=== PATIENT | female | born 1955 | race Caucasian/White ===

== ENCOUNTER 2018-04-10 08:14 | Outpatient (CLI) | payer MEDICAID, SELFPAY ==
--- NOTE | 2018-04-10 10:02 | MERGE_ITS ---
*[facility]* *[facility]* [address] [place] [address] Date of study: 04/10/2018 Transthoracic Echocardiography M-mode, complete 2D, complete spectral Doppler, and color Doppler *STUDY CONCLUSIONS* Summary: 1. Left ventricle: The cavity size was normal. Wall thickness was normal. Systolic function was normal. The estimated ejection fraction was 55-60%. Wall motion was normal; there were no regional wall motion abnormalities. Findings consistent with diastolic dysfunction. Doppler parameters are consistent with high ventricular filling pressure. 2. Aortic valve: Trileaflet; moderately calcified leaflets. There was mild stenosis. There was mild to moderate regurgitation. Peak velocity (S): 2.2m/sec. Valve area (VTI): 1.5cm^2. 3. Mitral valve: There was mild regurgitation. 4. Right ventricle: The cavity size was normal. Wall thickness was normal. Systolic function was normal. 5. Tricuspid valve: There was mild-moderate regurgitation. *PATIENT PRESENTATION* Height: 160cm ((63in) ) S/D Pressure: 123 / 88 Weight: 65.8kg ((144.7lb) ) BSA: 1.72m^2 Test start time: 10:10 AM. Test stop time: 11:10 AM. ORDERING Lili Wang REFERRING Lili Wang PERFORMING Unknown PERFORMING [facility] AIRPORT OPERATIONS MANAGER RT Julieta (R)(ALBA), ANDERSON *PROCEDURE DATA* Procedure information: The patient was identified by two identifiers. This study was interpreted by [facility]. Pertinent images and digital data are archived for permanent storage and are available for subsequent review. Study status: Routine. Transthoracic echocardiography. M-mode, complete 2D, complete spectral Doppler, and color Doppler. A Transthoracic Echocardiogram was performed. Scanning was performed from the parasternal, apical, subcostal, and suprasternal notch acoustic windows. Images were obtained using an [id number] cardiac ultrasound machine. Image quality was adequate. Study completion: The patient tolerated the procedure well. There were no complications. History: PMH: Systolic heart murmur. Hx rheumatoid arthritis. *CARDIAC ANATOMY* Left ventricle: The cavity size was normal. Wall thickness was normal. Systolic function was normal. The estimated ejection fraction was 55-60%. Wall motion was normal; there were no regional wall motion abnormalities. Findings consistent with diastolic dysfunction. Doppler parameters are consistent with high ventricular filling pressure. Aortic valve: Trileaflet; moderately calcified leaflets. Valve mobility was restricted. Doppler: There was mild stenosis. There was mild to moderate regurgitation. VTI ratio of LVOT to aortic valve: 0.49. Valve area (VTI): 1.5cm^2. Indexed valve area (VTI): 0.9cm^2/m^2. Peak velocity ratio of LVOT to aortic valve: 0.49. Valve area (Vmax): 1.5cm^2. Indexed valve area (Vmax): 0.9cm^2/m^2. Mean velocity ratio of LVOT to aortic valve: 0.5. Valve area (Vmean): 1.5cm^2. Indexed valve area (Vmean): 0.9cm^2/m^2. Mean gradient (S): 11.1mm Hg. Peak gradient (S): 19.9mm Hg. Aorta: Aortic root: The aortic root was normal in size. Ascending aorta: The ascending aorta was normal in size. Mitral valve: Structurally normal valve. Mobility was not restricted. Doppler: Transvalvular velocity was within the normal range. There was no evidence for stenosis. There was mild regurgitation. Valve area by pressure half-time: 3.9cm^2. Indexed valve area by pressure half-time: 2.3cm^2/m^2. Peak gradient (D): 3mm Hg. Left atrium: The atrium was normal in size. Right ventricle: The cavity size was normal. Wall thickness was normal. Systolic function was normal. Pulmonic valve: Structurally normal valve. Doppler: Transvalvular velocity was within the normal range. There was no evidence for stenosis. There was trivial regurgitation. Peak gradient (S): 2.9mm Hg. Tricuspid valve: Structurally normal valve. Doppler: Transvalvular velocity was within the normal range. There was no evidence for stenosis. There was mild-moderate regurgitation. Pulmonary artery: Pulmonary systolic pressure was within the normal range, in the range of 30mm Hg to 35mm Hg. Right atrium: The atrium was normal in size. Pericardium: There was no pericardial effusion. Systemic veins: Inferior vena cava: Well visualized. The vessel was patent and normal in size. The respirophasic diameter changes were in the normal range (greater than or equal to 50%). Baseline ECG: Normal sinus rhythm. Measurements Left ventricle Value Reference LV ID, ED, PLAX 4.5 cm 3.5 - 6.0 LV ID, ES, PLAX 3.3 cm 2.1 - 4.0 LV PW thickness, ED, PLAX 1.1 cm LV end-diastolic volume, 1-p A2C 64 ml LV ejection fraction, 1-p A2C 50 % LV end-diastolic volume, 1-p A4C 92 ml LV ejection fraction, 1-p A4C 61 % LV e', lateral 0.052 m/sec LV E/e', lateral 17 LV e', medial 0.055 m/sec LV E/e', medial 16 LV e', average 0.054 m/sec LV E/e', average 16 Ventricular septum Value Reference IVS thickness, ED, PLAX 1.0 cm LVOT Value Reference LVOT ID, A-P 2.0 cm LVOT area 3.1 cm^2 LVOT peak velocity, S 1.09 m/sec LVOT mean velocity, S 0.8 m/sec LVOT VTI, S 23.1 cm LVOT peak gradient, S 4.7 mm Hg LVOT mean gradient, S 2.8 mm Hg Stroke volume (SV), LVOT DP 71 ml Stroke index (SV/bsa), LVOT DP 41 ml/m^2 Aortic valve Value Reference Aortic valve peak velocity, S 2.2 m/sec Aortic valve mean velocity, S 1.59 m/sec Aortic valve VTI, S 47.0 cm Aortic mean gradient, S 11.1 mm Hg Aortic peak gradient, S 19.9 mm Hg VTI ratio, LVOT/AV 0.49 Aortic valve area, VTI 1.5 cm^2 Velocity ratio, peak, LVOT/AV 0.49 Aortic valve area, peak velocity 1.5 cm^2 Velocity ratio, mean, LVOT/AV 0.5 Aortic valve area, mean velocity 1.5 cm^2 Aortic valve area/bsa, mean velocity 0.9 cm^2/m^2 Aortic regurg deceleration 341 cm/s^2 Aortic regurg pressure half-time 333 ms Aorta Value Reference Aortic root ID, ED 3.2 cm Ascending aorta ID, A-P, S 3.4 cm Left atrium Value Reference LA ID, A-P, ES 2.4 cm LA ID/bsa, A-P 1.4 cm/m^2 <=2.2 LA area, ES, A4C 16.1 cm^2 8.8 - 23.4 LA area, ES, A2C 17 cm^2 LA volume/bsa, ES, 1-p A4C 26 ml/m^2 LA volume, ES, 2-p 43 ml LA volume/bsa, ES, 2-p 25 ml/m^2 LA/aortic root ratio 0.75 Mitral valve Value Reference Mitral E-wave peak velocity 0.86 m/sec Mitral A-wave peak velocity 1.01 m/sec Mitral deceleration time 194 ms 150 - 230 Mitral pressure half-time 56 ms Mitral peak gradient, D 3 mm Hg Mitral E/A ratio, peak 0.85 Mitral valve area, PHT, DP 3.9 cm^2 Tricuspid valve Value Reference Tricuspid regurg peak velocity 2.5 m/sec Tricuspid peak RV-RA gradient 25.9 mm Hg Right atrium Value Reference RA area, ES, A4C 16.5 cm^2 8.3 - 19.5 Pulmonic valve Value Reference Pulmonic peak gradient, S 2.9 mm Hg Legend: (L) and (H) bryce values outside specified reference range. I have personally reviewed the images and have reviewed and edited the reported findings. Electronically signed by Gal Miller 04/10/2018 12:36
== END 2018-04-10 08:34 ==
PROVIDERS: PCP Family Medicine; Visit Provider Family Medicine
DX: R01.1 Cardiac murmur, unspecified (principal); I50.30 Unspecified diastolic (congestive) heart failure; I35.1 Nonrheumatic aortic (valve) insufficiency; I34.0 Nonrheumatic mitral (valve) insufficiency; I36.1 Nonrheumatic tricuspid (valve) insufficiency
CPT/HCPCS: 93306

== ENCOUNTER 2018-05-11 13:39 | Outpatient (REF) | payer MEDICAID, SELFPAY ==
[2018-05-11 22:32] LABS: TSH (W/Ref FT4) 0.61 uIU/mL (0.358-3.74)
== END 2018-05-11 13:59 ==
LOC: NCHCN 13:39
PROVIDERS: PCP Family Medicine; Visit Provider Specialist/Technologist Athletic Trainer
DX: E03.9 Hypothyroidism, unspecified (principal)
CPT/HCPCS: 84443

== ENCOUNTER 2018-06-03 20:17 | Outpatient (REF) | payer MEDICAID, SELFPAY ==
[2018-06-03 21:01] LABS: HCT 46.1 % (36.0-46.0); HGB 15.8 g/dL (12.0-15.5); Mean Corp. HGB Concentration 34.3 g/dL (32.0-36.0); Mean Corpuscular Hemoglobin 32.2 pg (27.0-33.0); Mean Corpuscular Volume 93.9 fL (80-95); Mean Platelet Volume 11.6 fL (8.0-11.0); Platelet Count 271 x1000/uL (130-400); RBC 4.91 m/cumm (4.00-5.20); RBC Distribution Width 12.6 % (11.7-14.6)
[2018-06-03 21:04] LABS: ALT 69 U/L (12-78); AST 30 U/L (15-37); Albumin 4.3 g/dL (3.4-5.0); Alkaline Phosphatase 115 U/L (46-116); BUN 18 mg/dL (7-18); Bilirubin, Total 0.3 mg/dL (0.2-1.0); CREATININE 0.76 mg/dL (0.55-1.02); Calcium 9.9 mg/dL (8.5-10.1); Chloride 102 mmol/L (98-107); Glucose 105 mg/dL (70-100); Lipase 191 U/L (73-393); Potassium 3.7 mmol/L (3.5-5.1); Sodium 142 mmol/L (136-145)
== END 2018-06-03 20:37 ==
LOC: NCHCN 20:17
PROVIDERS: PCP Family Medicine; Visit Provider Specialist/Technologist Athletic Trainer
DX: R19.7 Diarrhea, unspecified (principal)
CPT/HCPCS: 80053; 83690; 85027

== ENCOUNTER 2018-06-04 10:11 | Outpatient (REF) | payer MEDICAID, SELFPAY ==
[2018-06-05 11:19] LABS: Campylobacter PCR SEE COMMENTS; Salmonella PCR SEE COMMENTS; Shiga Toxin PCR SEE COMMENTS; Shigella/Enteroinvasive Ecoli SEE COMMENTS
[2018-06-09 14:40] LABS: Helicobacter pylori Ag, Feces Negative (NEGAT)
== END 2018-06-04 10:31 ==
LOC: NCHCN 10:11
PROVIDERS: PCP Family Medicine; Visit Provider Specialist/Technologist Athletic Trainer
DX: R19.7 Diarrhea, unspecified (principal)
CPT/HCPCS: 87329; 87338; 87505; 83630; 87324

== ENCOUNTER 2018-06-15 10:34 | Outpatient (CLI) | payer MEDICAID, SELFPAY | END 2018-06-15 10:54 | PROVIDERS: PCP Family Medicine; Visit Provider Internal Medicine Interventional Cardiology | DX: I35.0 Nonrheumatic aortic (valve) stenosis (principal); I10 Essential (primary) hypertension | CPT/HCPCS: 93005; 93010 ==

== ENCOUNTER 2018-09-14 11:01 | Outpatient (CLI) | payer MEDICARE, BC, MEDICAID, SELFPAY | END 2018-09-14 11:21 | PROVIDERS: PCP Family Medicine; Visit Provider Internal Medicine Interventional Cardiology | DX: I35.0 Nonrheumatic aortic (valve) stenosis (principal); I10 Essential (primary) hypertension; M06.9 Rheumatoid arthritis, unspecified | CPT/HCPCS: 99214; 93005; 93010 ==

== ENCOUNTER 2019-05-07 01:38 | Outpatient (CLI) | payer MEDICARE, BC, SELFPAY ==
--- NOTE | 2019-05-07 13:53 | DI.US_ITS ---
APPROVED REPORT EXAM: Comprehensive 2D, Doppler, and color-flow Echocardiogram Patient Location: Out-Patient Physical Science Technician: Allison Rob [facility] ([place]) Indications: aortic stenosis i35.0 Conclusion Left Ventricle : The left ventricle is normal size. There is normal left ventricular wall thickness. Diastolic function is indeterminate. There is abnormal relaxation of the left ventricule. The left v entricular systolic function is normal. There is normal LV segmental wall motion. LVEF is estimated to be 60-65%. Right Ventricle : The right ventricle is normal size. The right ventricular systolic function appears normal. Atria : The left atrium size is normal. The right atrium size is normal. Aortic Valve : Aortic valve is probably trileaflet. Aortic valve leaflets are sclerotic Mild to moder ate aortic regurgitation directed eccentrically posterior. Mild aortic stenosis (mean gradient 13mmHg ). Mitral Valve : Mitral valve leaflets are mildly thickened. Mild mitral regurgitation. No evidence of mitral valve stenosis. Tricuspid Valve : The tricuspid valve is normal in structure. Mild tricuspid regurgitation. Great Vessels : IVC appears normal in size and collapses >50% with inspiration. Estimated RVSP is 29 -32 mmHg. Compared to echocardiogram dated 04/10/2018, there is no significant change. Wall motion Left Ventricle The left ventricle is normal size. The left ventricular systolic function is normal. There is normal left ventricular wall thickness. There is normal LV segmental wall motion. Diastolic function is inde terminate. There is abnormal relaxation of the left ventricule. LVEF is estimated to be 60-65%. Right Ventricle The right ventricle is normal size. The right ventricular systolic function appears normal. Atria The left atrium size is normal. The right atrium size is normal. Aortic Valve Aortic valve is probably trileaflet. Aortic valve leaflets are sclerotic Mild aortic stenosis (mean g radient 13mmHg). Mild to moderate aortic regurgitation directed eccentrically posterior. Mitral Valve Mitral valve leaflets are mildly thickened. No evidence of mitral valve stenosis. Mild mitral regurgi tation. Tricuspid Valve The tricuspid valve is normal in structure. Mild tricuspid regurgitation. Pulmonic Valve Pulmonic valve is not well visualized. Mild pulmonic regurgitation. Great Vessels The aortic root is normal in size. The ascending aorta is mildly dilated at 3.7 to 3.8 cm. IVC appear s normal in size and collapses >50% with inspiration. Estimated RVSP is 29-32 mmHg. Pericardium There is no pericardial effusion. 2D Dimensions IVSd 0.70 cm F: 0.6-1.0 LV EDV A2C 84.20 mL PWd 0.70 cm F: 0.6 - 1.0 LV EDV A4C 85.70 mL LVDd 5.25 cm F: 3.8 - 5.2 LA Volume Index A2C 15.97 mL/m2 Aortic Root 3.30 cm F: 2.7 - 3.3 LA Volume Index A4C 16.25 mL/m2 RA Area A4C 15.00 cm2 LA Volume Index Biplane 17.17 mL/m2 LVOT 1.95 cm (M/F) 1.5-2.5 LA Area A4C 11.97 cm2 Ascending Aorta 3.77 cm F: 2.3 - 3.1 LA Area A2C 12.65 cm2 LVEF (Carmona's) 63.44 % F: 54 - 74 EF AP4 64.29 % LV Volume 69.59 mL F: 46 - 106 EF AP2 63.54 % LV Volume Index 39.31 mL/m2 F: 29 - 61 EF BP 63.44 % LV Diastology E/A Ratio 0.8 MED E' 0.04 (>0.07 m/s) LV E/e MED 19.75 (<14) LAT E' 0.03 (>0.1 m/s) LV E/e LAT 24.90 (<14) Pulm Vein s 0.53 m/s PV S/D Ratio 1.29 Pulm Vein d 0.41 m/s Pulm Vein a 0.28 m/s Aortic Valve LVOT Area 3.05 cm2 LVOT Peak Doyle. 1.05 m/s LVOT Mean Doyle. 0.77 m/s LVOT Peak Gr. 4.75 mmHg ORLIN Vmax Index 0.72 cm2/m2 LVOT Mean Gr. 2.65 mmHg LVOT VTI 0.25 m ORLIN Mean Doyle. Index 0.79 cm2/m2 AoV Peak Doyle. 2.60 (0.5-1.3 m/s) AoV Mean Doyle. 1.66 m/s AI PHT 475.88 msec AO Peak GR. 26.97 mmHg AO Mean GR. 12.94 (<5 mmHg) AO VTI 0.55 (0.18-0.25 m) AV Regurg Decel. 1640.98 msec ORLIN (VTI) 1.42 (2.5-4.5 cm2) ORLIN (VTI) Index 0.80 cm/m2 Mitral Valve MV E Max Doyle. 0.78 (0.4-1.3 m/s) MV A Velocity 0.95 (0.4-1.3 m/s) E/A Ratio 0.79 MV Decel. Time 247.55 (160-240 msec) MV PHT 71.80 msec MVA PHT 3.05 cm2 Pulmonary Valve PV Peak Velocity 0.85 (0.5-1.5 m/s) MS End VMAX 91.26 cm/s Tricuspid Valve TR P. Velocity 2.69 m/s TV Regurg Vmax 2.69 m/s RAP Estimate 3.00 mmHg RVSP 32.00 mmHg TR P. Gradient 28.90 mmHg
== END 2019-05-07 01:58 ==
PROVIDERS: PCP Family Medicine; Visit Provider Internal Medicine Cardiovascular Disease
DX: I35.2 Nonrheumatic aortic (valve) stenosis with insufficiency (principal); I50.1 Left ventricular failure, unspecified; I10 Essential (primary) hypertension
CPT/HCPCS: 93306

== ENCOUNTER 2019-05-24 08:50 | Outpatient (CLI) | payer MEDICARE, BC, SELFPAY | END 2019-05-24 09:10 | PROVIDERS: PCP Family Medicine; Visit Provider Internal Medicine Cardiovascular Disease | DX: I35.0 Nonrheumatic aortic (valve) stenosis (principal); I50.30 Unspecified diastolic (congestive) heart failure; I11.0 Hypertensive heart disease with heart failure | CPT/HCPCS: 99204; 99215 ==

== ENCOUNTER 2019-06-03 09:47 | Outpatient (CLI) | payer MEDICARE, BC, SELFPAY ==
[2019-06-03 10:09] LABS: Abs Immature Grans 0.01 k/cumm (0.0-0.09); Absolute Basophil Count 0.04 k/cumm (0.0-0.2); Absolute Eosinophil Count 0.26 k/cumm (0.0-0.7); Absolute Lymphocyte Count 1.05 k/cumm (1.2-3.4); Absolute Monocyte Count 0.53 k/cumm (0.11-0.7); Absolute Neutrophil Count 3.15 k/cumm (1.2-6.7); Basophils % 0.8; Eosinophils % 5.2; HCT 41.9 % (36.0-46.0); HGB 14.3 g/dL (12.0-15.5); Immature Grans % 0.2; Lymphocytes % 20.8; Mean Corp. HGB Concentration 34.1 g/dL (32.0-36.0); Mean Corpuscular Hemoglobin 32.2 pg (27.0-33.0); Mean Corpuscular Volume 94.4 fL (80-95); Mean Platelet Volume 10.7 fL (8.0-11.0); Monocytes % 10.5; Neutrophils % 62.5; Platelet Count 298 x1000/uL (130-400); RBC 4.44 m/cumm (4.00-5.20); RBC Distribution Width 12.7 % (11.7-14.6); White Blood Cell Count 5.04 k/cumm (4.4-10.8)
[2019-06-03 10:45] LABS: ALT 31 U/L (14-59); AST 21 U/L (15-37); Albumin 3.8 g/dL (3.4-5.0); Alkaline Phosphatase 100 U/L (46-116); Anion Gap 8.6 mmol/L (3-11); BUN 21 mg/dL (7-18); Bilirubin, Total 0.4 mg/dL (0.2-1.0); CO2 28.4 mmol/L (21.0-32.0); CREATININE 0.71 mg/dL (0.55-1.02); Calcium 9.7 mg/dL (8.5-10.1); Chloride 106 mmol/L (98-107); Glucose 90 mg/dL (74-106); Potassium 4.8 mmol/L (3.5-5.1); Sodium 143 mmol/L (136-145); Total Protein 7.3 g/dL (6.4-8.2)
== END 2019-06-03 10:07 ==
PROVIDERS: PCP Family Medicine; Visit Provider Internal Medicine
DX: M05.9 Rheumatoid arthritis with rheumatoid factor, unspecified (principal); Z79.899 Other long term (current) drug therapy
CPT/HCPCS: 36415; 80053; 85025

== ENCOUNTER 2019-07-01 01:38 | Outpatient (CLI) | payer MEDICARE, BC, SELFPAY ==
--- NOTE | 2019-07-01 14:50 | DI.DEXA_ITS ---
EXAM: XR DEXA BONE DENSITY W/WO MATT INDICATION: ASYMPTOMATIC POST MENOPAUSAL STATE Z78.0. COMPARISON: No exams were available for comparison TECHNIQUE: 2D digital imaging was performed. FINDINGS: The lateral view of the spine shows no compression deformities. Evaluation of the left hip shows a total T-score of -2.6 and a Z-score of -1.3. This is consistent w ith osteoporosis and a high fracture risk. Evaluation of the right hip shows a total T-score of -3.0 and a Z-score of -1.2. This is also consis tent with osteoporosis and a high fracture risk. 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
--- NOTE | 2019-07-01 14:57 | DI.MAMMO_ITS ---
EXAM: MG MAMMO SCREENING CLINICAL HISTORY: SCREENING, [facility] CARE Z00.00 TECHNIQUE: Mammograms were interpreted according to the usual protocol including computer analysis w [employer] CAD system, tomosynthesis and C-view imaging. COMPARISON: May 2018 FINDINGS: The breasts are heterogeneously dense. No dominant mass or microcalcification is identified in eithe r breast. Current examination is compared with previous examinations including May 2018 and the re has been no gross interval change in appearance in comparison with the previous studies. IMPRESSION: No specific evidence of malignancy at this time. Routine screening examinations are suggested at year ly intervals in this age group according the ACS/ACR guidelines. Category 1, breast density category C. BI-RADS Cat 1 - Negative Breast Density - Category C - Heterogeneously dense
== END 2019-07-01 01:58 ==
PROVIDERS: PCP Family Medicine; Visit Provider Family Medicine
DX: M81.0 Age-related osteoporosis without current pathological fracture (principal); Z78.0 Asymptomatic menopausal state; Z12.31 Encounter for screening mammogram for malignant neoplasm of breast
CPT/HCPCS: 77063; 77067; 77080

== ENCOUNTER 2019-07-13 09:32 | Outpatient (REF) | payer MEDICARE, BC, SELFPAY | END 2019-07-13 09:52 | LOC: NCHCN 09:32 | PROVIDERS: PCP Family Medicine; Visit Provider Family Medicine | DX: R39.15 Urgency of urination (principal) | CPT/HCPCS: 87086 ==

== ENCOUNTER 2019-11-04 03:38 | Outpatient (CLI) | payer MEDICARE, BC, SELFPAY ==
[2019-11-04 10:24] LABS: Calculated LDL 147 mg/dL (<100); Cholesterol 227 mg/dL (<200); HDL Cholesterol 67 mg/dL (40-60); TSH (W/Ref FT4) 0.75 uIU/mL (0.36-3.74); Triglyceride 69 mg/dL (<150)
== END 2019-11-04 03:58 ==
PROVIDERS: PCP Family Medicine; Visit Provider Family Medicine
DX: E03.9 Hypothyroidism, unspecified (principal); E78.5 Hyperlipidemia, unspecified
CPT/HCPCS: 36415; 80061; 84443

== ENCOUNTER 2019-12-02 02:59 | Outpatient (CLI) | payer MEDICARE, BC, SELFPAY ==
[2019-12-02 16:26] LABS: Abs Immature Grans 0.01 k/cumm (0.0-0.09); Absolute Basophil Count 0.03 k/cumm (0.0-0.2); Absolute Eosinophil Count 0.18 k/cumm (0.0-0.7); Absolute Lymphocyte Count 1.32 k/cumm (1.2-3.4); Absolute Monocyte Count 0.63 k/cumm (0.11-0.7); Absolute Neutrophil Count 3.44 k/cumm (1.2-6.7); Basophils % 0.5; Eosinophils % 3.2; HCT 43.7 % (36.0-46.0); HGB 14.9 g/dL (12.0-15.5); Immature Grans % 0.2 %; Lymphocytes % 23.5; Mean Corp. HGB Concentration 34.1 g/dL (32.0-36.0); Mean Corpuscular Hemoglobin 32.3 pg (27.0-33.0); Mean Corpuscular Volume 94.8 fL (80-95); Mean Platelet Volume 12.1 fL (8.0-11.0); Monocytes % 11.2; Neutrophils % 61.4; Platelet Count 256 x1000/uL (130-400); RBC 4.61 m/cumm (4.00-5.20); RBC Distribution Width 12.8 % (11.7-14.6); White Blood Cell Count 5.61 k/cumm (4.4-10.8)
[2019-12-02 16:36] LABS: ALT 41 U/L (14-59); AST 25 U/L (15-37); Albumin 4.2 g/dL (3.4-5.0); Alkaline Phosphatase 81 U/L (46-116); Anion Gap 4.7 mmol/L (3-11); BUN 23 mg/dL (7-18); Bilirubin, Total 0.3 mg/dL (0.2-1.0); CO2 27.3 mmol/L (21.0-32.0); CREATININE 0.94 mg/dL (0.55-1.02); Calcium 9.8 mg/dL (8.5-10.1); Chloride 103 mmol/L (98-107); Estimated GFR 59.58 (mL/min/1.73m2); Glucose 82 mg/dL (74-106); Potassium 4.3 mmol/L (3.5-5.1); Sodium 135 mmol/L (136-145); Total Protein 7.4 g/dL (6.4-8.2)
== END 2019-12-02 03:19 ==
PROVIDERS: PCP Family Medicine; Visit Provider Internal Medicine
DX: M05.79 Rheumatoid arthritis with rheumatoid factor of multiple sites without organ or systems involvement (principal)
CPT/HCPCS: 36415; 80053; 85025

== ENCOUNTER 2020-04-06 02:41 | Outpatient (CLI) | payer MEDICARE, BC, SELFPAY ==
[2020-04-06 08:33] LABS: Abs Immature Grans 0.01 10^3/uL (0.0-0.06); Absolute Basophil Count 0.02 10^3/uL (0.0-0.2); Absolute Eosinophil Count 0.17 10^3/uL (0.0-0.7); Absolute Lymphocyte Count 1.11 10^3/uL (1.2-3.4); Absolute Monocyte Count 0.51 10^3/uL (0.1-0.8); Absolute Neutrophil Count 3.55 10^3/uL (1.2-6.7); Basophils % 0.4; Eosinophils % 3.2; HCT 44.4 % (36.0-46.0); HGB 14.9 g/dL (11.2-15.7); Immature Grans % 0.2; Lymphocytes % 20.7; MCH 32.5 pg (27.0-33.0); MCHC 33.6 % (32.0-36.0); MCV 96.9 fL (80-95); Monocytes % 9.5; Nucleated RBC 0 %; Platelet Count 249 10^3/uL (130-400); RBC 4.58 10^6/uL (3.93-5.22); RDW 12.4 % (11.7-14.6); RDW-SD 43.7 fL; WBC 5.37 10^3/uL (4.4-10.8)
[2020-04-06 08:49] LABS: Hemoglobin A1C 5.3 % (<5.7)
[2020-04-06 09:48] LABS: ALT 32 U/L (14-59); AST 20 U/L (15-37); Albumin 3.7 g/dL (3.4-5.0); Alkaline Phosphatase 88 U/L (46-116); Anion Gap 6.6 mmol/L (3-11); BUN 22 mg/dL (7-18); Bilirubin, Total 0.4 mg/dL (0.2-1.0); CO2 29.4 mmol/L (21.0-32.0); Calcium 9.4 mg/dL (8.5-10.1); Chloride 106 mmol/L (98-107); Glucose 90 mg/dL (74-106); Sodium 142 mmol/L (136-145); TSH 1.16 uIU/mL (0.36-3.74); Total Protein 7.1 g/dL (6.4-8.2)
== END 2020-04-06 03:01 ==
PROVIDERS: PCP Internal Medicine Endocrinology, Diabetes & Metabolism; Visit Provider Internal Medicine Endocrinology, Diabetes & Metabolism
DX: E06.3 Autoimmune thyroiditis (principal); R73.09 Other abnormal glucose; M05.79 Rheumatoid arthritis with rheumatoid factor of multiple sites without organ or systems involvement
CPT/HCPCS: 36415; 80053; 83036; 84443; 85025

== ENCOUNTER 2020-06-12 03:50 | Outpatient (CLI) | payer MEDICARE, BC, SELFPAY ==
[2020-06-12 08:46] LABS: Abs Immature Grans 0.01 10^3/uL (0.0-0.06); Absolute Basophil Count 0.05 10^3/uL (0.0-0.2); Absolute Eosinophil Count 0.23 10^3/uL (0.0-0.7); Absolute Lymphocyte Count 1.33 10^3/uL (1.2-3.4); Absolute Monocyte Count 0.67 10^3/uL (0.1-0.8); Absolute Neutrophil Count 3.49 10^3/uL (1.2-6.7); Basophils % 0.9; HCT 44.8 % (36.0-46.0); HGB 15.1 g/dL (11.2-15.7); Immature Grans % 0.2; MCH 32.2 pg (27.0-33.0); MCHC 33.7 % (32.0-36.0); MCV 95.5 fL (80-95); MPV 10.8 fL (8.0-11.0); Monocytes % 11.6; Neutrophils % 60.3; Nucleated RBC 0 %; Platelet Count 283 10^3/uL (130-400); RBC 4.69 10^6/uL (3.93-5.22); RDW 12.4 % (11.7-14.6); RDW-SD 43.3 fL; WBC 5.78 10^3/uL (4.4-10.8)
[2020-06-12 10:02] LABS: ALT 52 U/L (14-59); AST 22 U/L (15-37); Albumin 3.8 g/dL (3.4-5.0); Alkaline Phosphatase 99 U/L (46-116); Anion Gap 4.9 mmol/L (3-11); BUN 22 mg/dL (7-18); Bilirubin, Total 0.3 mg/dL (0.2-1.0); CO2 29.1 mmol/L (21.0-32.0); CREATININE 0.85 mg/dL (0.55-1.02); Calcium 9.6 mg/dL (8.5-10.1); Chloride 105 mmol/L (98-107); Glucose 85 mg/dL (74-106); Potassium 4.5 mmol/L (3.5-5.1); Sodium 139 mmol/L (136-145); Total Protein 7.3 g/dL (6.4-8.2)
== END 2020-06-12 04:10 ==
PROVIDERS: PCP Family Medicine; Visit Provider Nurse Practitioner Family
DX: M05.79 Rheumatoid arthritis with rheumatoid factor of multiple sites without organ or systems involvement (principal); Z79.899 Other long term (current) drug therapy
CPT/HCPCS: 36415; 80053; 85025

== ENCOUNTER 2020-07-03 02:39 | Outpatient (CLI) | payer MEDICARE, BC, SELFPAY ==
--- NOTE | 2020-07-03 | DI.MAMMO_ITS ---
EXAM: MAMMO SCREENING CLINICAL HISTORY: SCREENING, Z12.39. TECHNIQUE: Bilateral full field digital CC and MLO mammographic images were obtained with 3D tomosyn thesis and utilizing computer aided detection (CAD). COMPARISON: Prior mammograms dating back to 2010, the most recent being June 2019. Left breast u ltrasound performed June 2018 was reviewed. FINDINGS: Fibroglandular tissue is moderately dense, this decreasing sensitivity mammogram for finding in under lying lesions. The left breast there is a new nodular density measuring 10 x 9 millimeters located 5 centimetres in from the nipple approximately 6 o'clock position. Also another 14 x 11 millimeter adjacent nodular d ensity located 4 centimetres in from the nipple. In the opposite-right breast there is a well-define d 7 x 6 millimeter nodule located 4 centimetres in from the nipple, best seen on MLO 3D imaging. The re are no malignant-appearing microcalcification groups in either breast.. No new architectural dist ortion or skin thickening-traction. IMPRESSION: Moderately dense fibroglandular tissue. Bilateral nodules as described individually above, at least 2 in the left breast and at least 1 in the right breast. Bilateral breast ultrasound recommended. BI-RADS Category 0 - Assessment Incomplete: Need additional imaging evaluation Breast Density - Category C - Heterogeneously dense Breast density Category C or D implies that the patient has dense breast tissue. Dense breast tissue can make it harder to find cancer on a mammogram. Dense breast tissue is also associated with an incr eased risk of breast cancer. This information about the result of the mammogram report was provided to the patient to raise their awareness. Use this report when you speak with the patient about their risks for breast cancer, which includes their family history. At that time, you may recommend additional screening tests (Ultrasoun d or MRI) as these tests may add significant information. A negative radiographic report should not delay biopsy if a dominant or clinically suspicious mass is present. Up to ten percent of cancers are not identified on mammography. A negative report may reinforce clinical impression. Adenosis and dense breasts may obscure an underlying neoplasm. False positive reports average 6 to 10%. Patient will receive a letter notifying them of these results.
== END 2020-07-03 02:59 ==
PROVIDERS: PCP Family Medicine; Visit Provider Family Medicine
DX: Z12.31 Encounter for screening mammogram for malignant neoplasm of breast (principal); R92.8 Other abnormal and inconclusive findings on diagnostic imaging of breast
CPT/HCPCS: 77063; 77067

== ENCOUNTER → 2020-07-06 12:50 | Outpatient (BNVA) | payer MEDICARE, BC, SELFPAY | PROVIDERS: PCP Family Medicine; Referring Provider Family Medicine; Visit Provider Internal Medicine Cardiovascular Disease | DX: I10 Essential (primary) hypertension; I35.2 Nonrheumatic aortic (valve) stenosis with insufficiency; I51.89 Other ill-defined heart diseases | CPT/HCPCS: 99442; 99213 ==

== ENCOUNTER 2020-07-07 02:54 | Outpatient (CLI) | payer MEDICARE, BC, SELFPAY ==
--- NOTE | 2020-07-07 | DI.US_ITS ---
EXAM: US BREAST LT COMPLETE CLINICAL HISTORY: F/U MAMMO, NEW LT BREAST NODULAR DENSITY AND ADDITIONAL LT BREAST DENSITY. TECHNIQUE: Ultrasound of all 4 quadrants of the left breast was performed.. COMPARISON: Prior mammograms were reviewed. And recent mammogram 07/03/2020 FINDINGS: At the 12 o'clock position there is a 5 x 4 millimeter microcysts. Also at the 12 o'clock position a re 3 small adjacent 3 millimeter microcysts. At the 6 o'clock position there is an 8 x 7 millimeter microcyst which corresponds to 1 of the findings on the mammogram. Adjacent to this is a slightly la rger cyst measuring 10 x 7 millimeters, corresponding to the 2nd nodule seen on the mammogram. At the 8 o'clock position there is a smaller nodule which has the appearance of a hemorrhagic microcy st which measures 6 x 4 millimeters. IMPRESSION: 1. Two cysts at the 6 o'clock position correspond to the findings on the mammogram. 2. 8 o'clock position nodule has appearance of a probable 6 x 4 millimeter hemorrhagic microcyst. Appropriate follow-up is repeat left breast ultrasound in 6 months, this mostly to ensure stability o f the 8 o'clock position finding (which is probably hemorrhagic microcyst). BI-RADS Category 3 - 6 month - Probably Benign Finding: Recommend follow-up ultrasound in 6 months Breast Density - Category C - Heterogeneously dense Breast density Category C or D implies that the patient has dense breast tissue. Dense breast tissue can make it harder to find cancer on a mammogram. Dense breast tissue is also associated with an incr eased risk of breast cancer. This information about the result of the mammogram report was provided to the patient to raise their awareness. Use this report when you speak with the patient about their risks for breast cancer, which includes their family history. At that time, you may recommend additional screening tests (Ultrasoun d or MRI) as these tests may add significant information. A negative radiographic report should not delay biopsy if a dominant or clinically suspicious mass is present. Up to ten percent of cancers are not identified on mammography. A negative report may reinforce clinical impression. Adenosis and dense breasts may obscure an underlying neoplasm. False positive reports average 6 to 10%. Patient will receive a letter notifying them of these results.
--- NOTE | 2020-07-07 | DI.US_ITS ---
EXAM: US BREAST RT COMPLETE CLINICAL HISTORY: F/U MAMMO, RT BREAST NODULE. TECHNIQUE: Ultrasound of all 4 quadrants of the right breast was performed COMPARISON: Prior mammograms were reviewed. Most recent 07/03/2020 FINDINGS: At the 6 o'clock position there is a 9 x 5 millimeter microcyst. At the 5 o'clock position there is a 4 x 3 millimeter microcysts. At the 7 o'clock position there is a 6 x 4 millimeter microcyst. At the 12 o'clock position there is a by 3 millimeter microcysts. At the 2 o'clock position there is a 3 x 2 millimeter microcyst. At 3 o'clock position there is a 3 x 2 millimeter microcyst. No solid lesions evident. IMPRESSION: Multiple microcysts in the right breast as described above. The cyst at the 6 o'clock position most probably corresponds to what is seen on the mammogram. Most importantly, there are no ominous solid lesions seen on ultrasound of the right breast. Appropriate follow-up is repeat ultrasound in 6 months. This is mostly to restudy a finding in the o pposite-left breast. See separate left breast ultrasound report BI-RADS Category 3 - 6 month - Probably Benign Finding: Recommend follow-up mammography in 6 months Breast Density - Category C - Heterogeneously dense Breast density Category C or D implies that the patient has dense breast tissue. Dense breast tissue can make it harder to find cancer on a mammogram. Dense breast tissue is also associated with an incr eased risk of breast cancer. This information about the result of the mammogram report was provided to the patient to raise their awareness. Use this report when you speak with the patient about their risks for breast cancer, which includes their family history. At that time, you may recommend additional screening tests (Ultrasoun d or MRI) as these tests may add significant information. A negative radiographic report should not delay biopsy if a dominant or clinically suspicious mass is present. Up to ten percent of cancers are not identified on mammography. A negative report may reinforce clinical impression. Adenosis and dense breasts may obscure an underlying neoplasm. False positive reports average 6 to 10%. Patient will receive a letter notifying them of these results.
== END 2020-07-07 03:14 ==
PROVIDERS: PCP Family Medicine; Visit Provider Family Medicine
DX: N60.01 Solitary cyst of right breast (principal); R92.2 Inconclusive mammogram; N60.02 Solitary cyst of left breast; N63.24 Unspecified lump in the left breast, lower inner quadrant; R92.8 Other abnormal and inconclusive findings on diagnostic imaging of breast
CPT/HCPCS: 76642

== ENCOUNTER 2020-09-13 03:27 | Outpatient (CLI) | payer MEDICARE, BC, SELFPAY ==
[2020-09-13 08:34] LABS: Abs Immature Grans 0.01 10^3/uL (0.0-0.06); Absolute Basophil Count 0.03 10^3/uL (0.0-0.2); Absolute Eosinophil Count 0.26 10^3/uL (0.0-0.7); Absolute Lymphocyte Count 1.15 10^3/uL (1.2-3.4); Absolute Monocyte Count 0.62 10^3/uL (0.1-0.8); Absolute Neutrophil Count 2.81 10^3/uL (1.2-6.7); Basophils % 0.6; Eosinophils % 5.3; HCT 42.9 % (36.0-46.0); HGB 14.5 g/dL (11.2-15.7); Immature Grans % 0.2; Lymphocytes % 23.6; MCH 32.4 pg (27.0-33.0); MCHC 33.8 % (32.0-36.0); MPV 10.7 fL (8.0-11.0); Monocytes % 12.7; Neutrophils % 57.6; Nucleated RBC 0 %; Platelet Count 281 10^3/uL (130-400); RBC 4.47 10^6/uL (3.93-5.22); RDW 12.3 % (11.7-14.6); RDW-SD 43.8 fL; WBC 4.88 10^3/uL (4.4-10.8)
[2020-09-13 09:20] LABS: ALT 65 U/L (14-59); AST 31 U/L (15-37); Albumin 3.8 g/dL (3.4-5.0); Alkaline Phosphatase 79 U/L (46-116); Anion Gap 7.7 mmol/L (3-11); BUN 22 mg/dL (7-18); Bilirubin, Total 0.4 mg/dL (0.2-1.0); CO2 30.3 mmol/L (21.0-32.0); CREATININE 0.8 mg/dL (0.55-1.02); Calcium 9.1 mg/dL (8.5-10.1); Chloride 106 mmol/L (98-107); Glucose 92 mg/dL (74-106); Potassium 4.5 mmol/L (3.5-5.1); Sodium 144 mmol/L (136-145); Total Protein 7.1 g/dL (6.4-8.2)
== END 2020-09-13 03:28 | disposition home or self-care (01) ==
LOC: LBO 03:27
PROVIDERS: PCP Family Medicine; Visit Provider Nurse Practitioner Family
DX: M05.79 Rheumatoid arthritis with rheumatoid factor of multiple sites without organ or systems involvement (principal); Z79.899 Other long term (current) drug therapy
CPT/HCPCS: 36415; 80053; 85025

== ENCOUNTER 2020-11-16 15:29 | Outpatient (REF) | payer MEDICARE, BC, SELFPAY ==
[2020-11-16 19:12] LABS: Bilirubin Negative (Negative); Blood Negative (Negative); Clarity Clear (Clear); Glucose Negative (Negative); Ketones Negative (Negative); Leukocyte Esterase Negative (Negative); Nitrite Negative (Negative); Urobilinogen 0.2 EU/dL (Up TO 0.2); pH 5.5 (5-8)
== END 2020-11-16 15:30 | disposition home or self-care (01) ==
LOC: NCHCN 15:29
PROVIDERS: PCP Family Medicine; Visit Provider Family Medicine
DX: R30.0 Dysuria (principal)
CPT/HCPCS: 81003

== ENCOUNTER 2020-12-12 16:10 | Outpatient (REF) | payer MEDICARE, BC, SELFPAY | END 2020-12-12 16:11 | disposition home or self-care (01) | LOC: NCHCN 16:10 | PROVIDERS: PCP Family Medicine; Visit Provider Physician Assistant Medical | DX: R10.32 Left lower quadrant pain (principal) | CPT/HCPCS: 87086 ==

== ENCOUNTER 2020-12-29 08:28 | Outpatient (REF) | payer MEDICARE, BC, SELFPAY | END 2020-12-29 08:29 | disposition home or self-care (01) | LOC: NCHCN 08:28 | PROVIDERS: PCP Family Medicine; Visit Provider Physician Assistant Medical | DX: R10.32 Left lower quadrant pain (principal) | CPT/HCPCS: 87086 ==

== ENCOUNTER 2021-01-02 03:49 | Outpatient (CLI) | payer MEDICARE, BC, SELFPAY ==
[2021-01-02 08:55] LABS: Abs Immature Grans 0.02 10^3/uL (0.0-0.06); Absolute Basophil Count 0.04 10^3/uL (0.0-0.2); Absolute Eosinophil Count 0.19 10^3/uL (0.0-0.7); Absolute Lymphocyte Count 1.31 10^3/uL (1.2-3.4); Absolute Monocyte Count 0.54 10^3/uL (0.1-0.8); Absolute Neutrophil Count 2.85 10^3/uL (1.2-6.7); Basophils % 0.8; Eosinophils % 3.8; HCT 44.1 % (36.0-46.0); HGB 14.4 g/dL (11.2-15.7); Immature Grans % 0.4; Lymphocytes % 26.5; MCH 31.4 pg (27.0-33.0); MCHC 32.7 % (32.0-36.0); MCV 96.3 fL (80-95); MPV 10.8 fL (8.0-11.0); Monocytes % 10.9; Neutrophils % 57.6; Nucleated RBC 0 %; Platelet Count 305 10^3/uL (130-400); RBC 4.58 10^6/uL (3.93-5.22); RDW 12.7 % (11.7-14.6); RDW-SD 44.8 fL; WBC 4.95 10^3/uL (4.4-10.8)
[2021-01-02 09:03] LABS: Hemoglobin A1C 5.3 % (<5.7)
[2021-01-02 10:06] LABS: ALT 32 U/L (14-59); AST 20 U/L (15-37); Albumin 3.9 g/dL (3.4-5.0); Alkaline Phosphatase 96 U/L (46-116); Anion Gap 9.1 mmol/L (3-11); BUN 27 mg/dL (7-18); Bilirubin, Total 0.3 mg/dL (0.2-1.0); CO2 25.9 mmol/L (21.0-32.0); Calcium 9.4 mg/dL (8.5-10.1); Chloride 107 mmol/L (98-107); Glucose 84 mg/dL (74-106); Potassium 5.1 mmol/L (3.5-5.1); Sodium 142 mmol/L (136-145); Total Protein 7.6 g/dL (6.4-8.2)
== END 2021-01-02 03:50 | disposition home or self-care (01) ==
PROVIDERS: PCP Family Medicine; Visit Provider Nurse Practitioner Family
DX: M05.79 Rheumatoid arthritis with rheumatoid factor of multiple sites without organ or systems involvement (principal); Z79.899 Other long term (current) drug therapy; R73.09 Other abnormal glucose
CPT/HCPCS: 36415; 80053; 83036; 85025

== ENCOUNTER 2021-01-03 15:38 | Outpatient (CLI) | payer MEDICARE, BC, SELFPAY ==
--- NOTE | 2021-01-03 | DI.US_ITS ---
Exam(s) US BREAST LT LIMITED EXAM: US BREAST LT LIMITED CLINICAL HISTORY: F/U MAMMO, 6 MO F/U, R92.8. TECHNIQUE: Ultrasound of all 4 quadrants of the left breast performed COMPARISON: Prior mammograms were reviewed. Prior breast ultrasound 07/07/2020 was reviewed FINDINGS: At 12 o'clock position there are 2 adjacent microcysts At 1 o'clock position there is a 7 x 4 millimeter microcyst. At the 4 o'clock position there is a 6 x 5 millimeter microcyst. At the 6 o'clock position there is a 1.4 x 0.8 cm cyst. This has slightly increased in size from prio r measurement but remains purely cystic. At the 7 o'clock position there is a 6 x 4 millimeter microcyst. At the 8 o'clock position there is a 1.2 x 0.8 cm cyst. At 10 o'clock position there are 2 microcysts measuring 5 millimeters. No solid lesions seen in all 4 quadrants nor in the retroareolar region. IMPRESSION: Multiple benign microcysts and cysts as described above. No solid lesions. Appropriate follow-up is to keep this patient yearly mammogram schedule, this implying the next bilat eral mammogram would be in 6 months. Recommend repeat bilateral breast ultrasound in 6 months.. BI-RADS Category 2 - Benign Findings Breast Density - Category C - Heterogeneously dense Breast density Category C or D implies that the patient has dense breast tissue. Dense breast tissue can make it harder to find cancer on a mammogram. Dense breast tissue is also associated with an incr eased risk of breast cancer. This information about the result of the mammogram report was provided to the patient to raise their awareness. Use this report when you speak with the patient about their risks for breast cancer, which includes their family history. At that time, you may recommend additional screening tests (Ultrasoun d or MRI) as these tests may add significant information. A negative radiographic report should not delay biopsy if a dominant or clinically suspicious mass is present. Up to ten percent of cancers are not identified on mammography. A negative report may reinforce clinical impression. Adenosis and dense breasts may obscure an underlying neoplasm. False positive reports average 6 to 10%. Patient will receive a letter notifying them of these results.
== END 2021-01-03 15:58 ==
PROVIDERS: PCP Family Medicine; Visit Provider Family Medicine
DX: N60.02 Solitary cyst of left breast (principal); R92.8 Other abnormal and inconclusive findings on diagnostic imaging of breast; R92.2 Inconclusive mammogram
CPT/HCPCS: 76642

== ENCOUNTER 2021-03-06 04:40 | Outpatient (CLI) | payer MEDICARE, BC, SELFPAY ==
[2021-03-06 11:23] LABS: Abs Immature Grans 0.01 10^3/uL (0.0-0.06); Absolute Basophil Count 0.02 10^3/uL (0.0-0.2); Absolute Eosinophil Count 0.17 10^3/uL (0.0-0.7); Absolute Lymphocyte Count 1.44 10^3/uL (1.2-3.4); Absolute Monocyte Count 0.67 10^3/uL (0.1-0.8); Absolute Neutrophil Count 3.47 10^3/uL (1.2-6.7); Basophils % 0.3; Eosinophils % 2.9; HCT 43.6 % (36.0-46.0); HGB 14.4 g/dL (11.2-15.7); Immature Grans % 0.2; Lymphocytes % 24.9; MCH 31.6 pg (27.0-33.0); MCV 95.8 fL (80-95); Monocytes % 11.6; Neutrophils % 60.1; Nucleated RBC 0 %; Platelet Count 276 10^3/uL (130-400); RBC 4.55 10^6/uL (3.93-5.22); RDW 13.1 % (11.7-14.6); RDW-SD 46.7 fL; WBC 5.78 10^3/uL (4.4-10.8)
[2021-03-06 11:35] LABS: Hemoglobin A1C 5.3 % (<5.7)
[2021-03-06 12:41] LABS: ALT 47 U/L (14-59); AST 24 U/L (15-37); Alkaline Phosphatase 85 U/L (46-116); Anion Gap 3.3 mmol/L (3-11); BUN 19 mg/dL (7-18); Bilirubin, Total 0.4 mg/dL (0.2-1.0); CO2 31.7 mmol/L (21.0-32.0); CREATININE 0.9 mg/dL (0.55-1.02); Calcium 9.9 mg/dL (8.5-10.1); Chloride 107 mmol/L (98-107); Glucose 88 mg/dL (74-106); Sodium 142 mmol/L (136-145); TSH 1.06 uIU/mL (0.36-3.74); Total Protein 7.4 g/dL (6.4-8.2)
== END 2021-03-06 04:41 | disposition home or self-care (01) ==
LOC: LBO 04:41
PROVIDERS: PCP Family Medicine; Visit Provider Nurse Practitioner Family
DX: R73.09 Other abnormal glucose (principal); E06.3 Autoimmune thyroiditis; M05.79 Rheumatoid arthritis with rheumatoid factor of multiple sites without organ or systems involvement; Z79.899 Other long term (current) drug therapy
CPT/HCPCS: 36415; 80053; 83036; 84443; 85025

== ENCOUNTER 2021-07-02 02:16 | Outpatient (CLI) | payer MEDICARE, BC, SELFPAY ==
--- NOTE | 2021-07-02 14:00 | DI.US_ITS ---
APPROVED REPORT EXAM: Comprehensive 2D, Doppler, and color-flow Echocardiogram Patient Location: Out-Patient Indications: Aortic stenosis Other Information Study Quality: Adequate Conclusion Normal left ventricular wall thickness and chamber size. Estimated ejection fraction is 60%. Wall m otion is normal Normal right ventricular size and systolic function Both atria are normal in size Aortic valve is sclerotic and trileaflet. There is trace aortic regurgitation. There is no aortic s tenosis Normal mitral valve with trace regurgitation Normal tricuspid valve with mild regurgitation. Estimated right ventricular systolic pressure is nor mal at 25 mmHg Mildly dilated ascending aorta measuring 3.83 cm Wall motion Left Ventricle The left ventricle is normal size. The left ventricular systolic function is normal. The left ventric ular ejection fraction is within the normal range. There is normal left ventricular wall thickness. T here is normal LV segmental wall motion. There is no ventricular septal defect visualized. LVEF is 60 %. Right Ventricle The right ventricle is normal size. The right ventricular systolic function is normal. The RVSP is 26 .0 mmHg. Atria The left atrium size is normal. The right atrium size is normal. The interatrial septum is intact wit h no evidence for an atrial septal defect. Aortic Valve The Aortic valve is sclerotic. Aortic valve is trileaflet.. No hemodynamically significant valvular a ortic stenosis. Trace aortic regurgitation. Mitral Valve The mitral valve is normal in structure. No evidence of mitral valve stenosis. Trace mitral regurgita tion. Tricuspid Valve The tricuspid valve is normal in structure. There is no tricuspid valve stenosis. Mild tricuspid regu rgitation. Pulmonic Valve The pulmonary valve is normal in structure. There is no pulmonic valvular stenosis. Trace pulmonic re gurgitation. Great Vessels The aortic root is normal in size. The ascending aorta is mildly dilated. Aortic arch is normal in ca liber. IVC is normal in size and collapses >50% with inspiration. Pericardium There is no pericardial effusion. 2D Dimensions IVSD d PLAX 0.86 cm F: 0.6-1.0 LV Vol A2C d MOD 70.3 mL LVPW d PLAX 0.79 cm F: 0.6 - 1.0 LV Vol A4C d MOD 90.4 mL LVID d PLAX 4.76 cm F: 3.8 - 5.2 LA vol/ BSA A2C s A-L 17.2 mL/m2 LVDs 3.20 cm F: 2.2 - 3.5 LA vol/ BSA A4C s A-L 13.3 mL/m2 Ao Root d 2.77 cm F: 2.7 - 3.3 LA Vol/ BSA Biplane s A-L 16.0 mL/m2 RA Area A4C 12.33 cm2 LA Area A4C s MOD 10.60 cm2 RA Vol/ BSA A4C s A-L 17.1 mL/m2 LA Area A2C s MOD 11.36 cm2 Ao Asc Diam d 3.83 cm F: 2.3 - 3.1 LV EF A4C MOD 60.5 % LV EF Teichholz 61.0 % LV EF A2C MOD 60.9 % LVEF (Carmona's) 60.56 % F: 54 - 74 LV EF Biplane MOD 60.6 % LV Volume 61.96 mL F: 46 - 106 SV 48.29 mL LV Volume Index 34.42 mL/m2 F: 29 - 61 SV Index 26.76 mL/m2 LV Vol Biplane MOD 79.7 mL FS 32.65 % M-Mode TAPSE 2.65 cm (M/F) >1.7 LV Diastology MV E' medial 0.086 (>0.07 m/s) E/A Ratio 0.9 LV E/e MED 9.50 (<14) MV E Vmax 0.82 (0.4-1.3 m/s) MV E' lateral 0.056 (>0.1 m/s) MV A Vmax 0.95 (0.4-1.3 m/s) LV E/e LAT 14.60 (<14) MV E/A Ratio 0.84 MV E/E' medial 9.51 MV E/E' lateral 14.61 Aortic Valve LVOT Area 3.07 cm2 AoV Area Vmax 1.78 cm2 LVOT Vmax 1.02 m/s AoV Area/ BSA (Vmax) 0.99 cm2/m2 LVOT Mean Doyle. 0.61 m/s ORLIN Mean Doyle. 1.48 cm2 LVOT Peak Grad 4.1 mmHg ORLIN Mean Doyle. Index 0.82 cm2/m2 LVOT Mean Grad 1.9 mmHg AR DT 3135 msec LVOT VTI 0.178 m AR PHT 909 msec LVOT Diam s 1.95 cm AoV Vmax 1.75 m/s Velocity Ratio 0.58 AoV Mean Doyle. 1.27 m/s AoV Peak Grad 12.3 mmHg LVOT SV 54.66 mL AoV Mean Grad 7.2 mmHg AoV VTI 0.368 m AoV Area VTI 1.49 cm2 AoV Area/ BSA (VTI) 0.82 cm/m2 Mitral Valve MV DT 238 (160-240 msec) MV PHT 69 msec MV Area PHT 3.19 cm2 MV VTI 0.354 m MV Area VTI 1.54 (4.0-6.0 cm2) Pulmonary Valve PV Vmax 0.83 (0.5-1.5 m/s) RVOT Peak Gr. 2.16 mmHg PV Peak Grad 2.8 mmHg RVOT Mean Gr. 1.00 mmHg PV Mean Grad 1.5 mmHg RVOT VTI 0.162 m PV VTI 0.198 m RVOT Vmax 0.74 m/s Tricuspid Valve TR Peak Grad 22.9 mmHg TR Vmax 2.40 m/s RA Pressure 3.00 mmHg RVSP (TR) 26.0 mmHg
== END 2021-07-02 02:36 ==
PROVIDERS: PCP Family Medicine; Visit Provider Internal Medicine Cardiovascular Disease
DX: I08.2 Rheumatic disorders of both aortic and tricuspid valves (principal); I77.810 Thoracic aortic ectasia
CPT/HCPCS: 93306

== ENCOUNTER 2021-07-05 02:47 | Outpatient (CLI) | payer MEDICARE, BC, SELFPAY ==
--- NOTE | 2021-07-05 | DI.DEXA_ITS ---
Exam(s) XR DEXA BONE DENSITY W/WO MATT EXAM: XR DEXA BONE DENSITY W/WO MATT CLINICAL HISTORY: OSTEOPOROSIS, M81.0 TECHNIQUE: COMPARISON: CR XR DEXA BONE DENSITY W/WO MATT from 07/01/2019 FINDINGS: Lateral Spine Image: Unremarkable. No compression deformities identified. Left hip: Total T-Score: -2.0. This compares to -2.6 on the prior examination. Total Z-Score: -0.6 T- and Z-scores: Findings consistent with osteopenia. Lumbar Spine: Total T-Score: -2.6. This compares to -3.0 on the prior examination. Total Z-Score: -0.7. T- and Z-scores: Findings consistent with osteoporosis. IMPRESSION: Findings of osteoporosis in the lumbar spine.
== END 2021-07-05 03:07 ==
PROVIDERS: PCP Family Medicine; Visit Provider Family Medicine
DX: M81.0 Age-related osteoporosis without current pathological fracture (principal); M85.88 Other specified disorders of bone density and structure, other site
CPT/HCPCS: 77080

== ENCOUNTER → 2021-07-09 08:57 | Outpatient (BNVA) | payer MEDICARE, BC, SELFPAY | PROVIDERS: PCP Family Medicine; Referring Provider Family Medicine; Visit Provider Internal Medicine Cardiovascular Disease | DX: I35.0 Nonrheumatic aortic (valve) stenosis (principal); I10 Essential (primary) hypertension | CPT/HCPCS: 99213 ==

== ENCOUNTER 2021-07-13 01:38 | Outpatient (CLI) | payer MEDICARE, BC, SELFPAY ==
[2021-07-13 09:52] LABS: Abs Immature Grans 0.01 10^3/uL (0.0-0.06); Absolute Basophil Count 0.04 10^3/uL (0.0-0.2); Absolute Eosinophil Count 0.22 10^3/uL (0.0-0.7); Absolute Lymphocyte Count 1.28 10^3/uL (1.2-3.4); Absolute Monocyte Count 0.66 10^3/uL (0.1-0.8); Basophils % 0.6; Eosinophils % 3.5; HCT 44.6 % (36.0-46.0); HGB 14.7 g/dL (11.2-15.7); Immature Grans % 0.2; Lymphocytes % 20.6; MCH 32.2 pg (27.0-33.0); MCV 97.6 fL (80-95); Monocytes % 10.6; Neutrophils % 64.5; Nucleated RBC 0 %; Platelet Count 262 10^3/uL (130-400); RBC 4.57 10^6/uL (3.93-5.22); RDW 12.6 % (11.7-14.6); RDW-SD 45.1 fL; WBC 6.21 10^3/uL (4.4-10.8)
[2021-07-13 10:37] LABS: ALT 34 U/L (14-59); AST 20 U/L (15-37); Albumin 3.8 g/dL (3.4-5.0); Alkaline Phosphatase 90 U/L (46-116); Anion Gap 8.7 mmol/L (3-11); BUN 17 mg/dL (7-18); Bilirubin, Total 0.4 mg/dL (0.2-1.0); CO2 28.3 mmol/L (21.0-32.0); CREATININE 0.8 mg/dL (0.55-1.02); Calcium 9.4 mg/dL (8.5-10.1); Chloride 107 mmol/L (98-107); Glucose 90 mg/dL (74-106); Potassium 4.4 mmol/L (3.5-5.1); Sodium 144 mmol/L (136-145); Total Protein 7.2 g/dL (6.4-8.2)
== END 2021-07-13 01:39 | disposition home or self-care (01) ==
PROVIDERS: PCP Family Medicine; Visit Provider Nurse Practitioner Family
DX: M05.79 Rheumatoid arthritis with rheumatoid factor of multiple sites without organ or systems involvement (principal); Z79.899 Other long term (current) drug therapy
CPT/HCPCS: 36415; 80053; 85025

== ENCOUNTER 2021-11-06 03:04 | Outpatient (CLI) | payer MEDICARE, BC, SELFPAY ==
[2021-11-06 12:53] LABS: Abs Immature Grans 0.01 10^3/uL (0.0-0.06); Absolute Basophil Count 0.03 10^3/uL (0.0-0.2); Absolute Eosinophil Count 0.12 10^3/uL (0.0-0.7); Absolute Lymphocyte Count 1.36 10^3/uL (1.2-3.4); Absolute Monocyte Count 0.65 10^3/uL (0.1-0.8); Basophils % 0.4; Eosinophils % 1.7; HCT 41.7 % (36.0-46.0); HGB 14.1 g/dL (11.2-15.7); Immature Grans % 0.1; Lymphocytes % 18.7; MCHC 33.8 % (32.0-36.0); MCV 95 fL (80-95); MPV 10.8 fL (8.0-11.0); Monocytes % 8.9; Neutrophils % 70.2; Platelet Count 290 10^3/uL (130-400); RBC 4.41 10^6/uL (3.93-5.22); RDW 12.4 % (11.7-14.6); RDW-SD 43.7 fL; WBC 7.27 10^3/uL (4.4-10.8)
[2021-11-06 15:31] LABS: ALT 37 U/L (14-59); AST 25 U/L (15-37); Albumin 3.8 g/dL (3.4-5.0); Alkaline Phosphatase 83 U/L (46-116); Anion Gap 7.6 mmol/L (3-11); BUN 22 mg/dL (7-18); Bilirubin, Total 0.3 mg/dL (0.2-1.0); CO2 28.4 mmol/L (21.0-32.0); CREATININE 0.8 mg/dL (0.55-1.02); Chloride 108 mmol/L (98-107); Glucose 88 mg/dL (74-106); Potassium 4.4 mmol/L (3.5-5.1); Sodium 144 mmol/L (136-145)
== END 2021-11-06 03:05 | disposition home or self-care (01) ==
LOC: LBO 03:04
PROVIDERS: PCP Family Medicine; Visit Provider Nurse Practitioner Family
DX: M05.79 Rheumatoid arthritis with rheumatoid factor of multiple sites without organ or systems involvement (principal); Z79.899 Other long term (current) drug therapy
CPT/HCPCS: 36415; 80053; 85025

== ENCOUNTER 2022-03-04 02:49 | Outpatient (CLI) | payer MEDICARE, BC, SELFPAY ==
[2022-03-04 13:20] LABS: Abs Immature Grans 0.02 10^3/uL (0.0-0.06); Absolute Basophil Count 0.02 10^3/uL (0.0-0.2); Absolute Eosinophil Count 0.15 10^3/uL (0.0-0.7); Absolute Lymphocyte Count 1.42 10^3/uL (1.2-3.4); Absolute Monocyte Count 0.55 10^3/uL (0.1-0.8); Basophils % 0.3; Eosinophils % 2.3; HCT 43.7 % (36.0-46.0); HGB 14.6 g/dL (11.2-15.7); Immature Grans % 0.3; Lymphocytes % 21.3; MCH 31.7 pg (27.0-33.0); MCHC 33.4 % (32.0-36.0); MCV 95 fL (80-95); MPV 10.8 fL (8.0-11.0); Monocytes % 8.3; Neutrophils % 67.5; Platelet Count 263 10^3/uL (130-400); RDW 12.5 % (11.7-14.6); RDW-SD 43.6 fL; WBC 6.66 10^3/uL (4.4-10.8)
[2022-03-04 14:25] LABS: ALT 33 U/L (14-59); AST 21 U/L (15-37); Albumin 3.8 g/dL (3.4-5.0); Alkaline Phosphatase 100 U/L (46-116); Anion Gap 7.9 mmol/L (3-11); BUN 21 mg/dL (7-18); Bilirubin, Total 0.4 mg/dL (0.2-1.0); CO2 30.1 mmol/L (21.0-32.0); CREATININE 0.9 mg/dL (0.55-1.02); Calcium 9.9 mg/dL (8.5-10.1); Chloride 104 mmol/L (98-107); Estimated GFR 69.64 (mL/min/1.73m2); Glucose 89 mg/dL (74-106); Potassium 4.3 mmol/L (3.5-5.1); Sodium 142 mmol/L (136-145); Total Protein 7.9 g/dL (6.4-8.2)
== END 2022-03-04 02:50 | disposition home or self-care (01) ==
LOC: LBO 02:51
PROVIDERS: PCP Family Medicine; Visit Provider Nurse Practitioner Family
DX: M05.79 Rheumatoid arthritis with rheumatoid factor of multiple sites without organ or systems involvement (principal); Z79.899 Other long term (current) drug therapy
CPT/HCPCS: 36415; 80053; 85025

== ENCOUNTER → 2022-05-03 00:50 | Outpatient (CLI) | payer MEDICARE, BC, SELFPAY ==
--- NOTE | 2022-05-03 | DI.MAMMO_ITS ---
Exam(s) MAMMO SCREENING EXAM: MAMMO SCREENING CLINICAL HISTORY: SCREENING, Z12.39, H/O LORENZA BREAST MASS TECHNIQUE: Mammograms were interpreted according to the usual protocol including computer analysis w [email or web address] CAD system, tomosynthesis and C-view imaging. COMPARISON: FINDINGS: The breasts are of moderate density with fairly symmetrical distribution of fibroglandular tissue. Current examination is compared with multiple previous examinations including June 2020. There ar e multiple new areas of nodularity seen bilaterally in the breasts. On the left, there are 2 new are as of nodularity projected in the central portion of the breast, the largest measuring about 21 camryn meters in greatest diameter. On the right, there are areas of new nodularity projected centrally and anteriorly on the cc view and in the central portion of the breast MLO view. The borders of these areas of nodularity are not andrea ally visualized. Cc and MLO spot compression views of both breasts and bilateral breast ultrasound r ecommended for further characterization. IMPRESSION: Additional mammographic views of both breasts and bilateral breast ultrasound recommended as describ ed above. BI-RADS Category 0 - Assessment Incomplete: Need additional imaging evaluation Breast Density - Category B - Scattered areas of fibroglandular density
== END ==
PROVIDERS: PCP Family Medicine; Visit Provider Family Medicine
DX: Z12.31 Encounter for screening mammogram for malignant neoplasm of breast (principal); R92.8 Other abnormal and inconclusive findings on diagnostic imaging of breast
CPT/HCPCS: 77063; 77067

== ENCOUNTER → 2022-05-09 03:15 | Outpatient (CLI) | payer MEDICARE, BC, SELFPAY ==
--- NOTE | 2022-05-09 | DI.US_ITS ---
Exam(s) US BREAST LT COMPLETE US BREAST RT COMPLETE MG MAMMO SCREEN CALL BACK BI EXAM: US BREAST RT COMPLETE CLINICAL HISTORY: F/U MAMMO/SPOTS, NEW NODULARITY RT BREAST TECHNIQUE: Ultrasound performed using standard protocol. COMPARISON: US US BREAST LT COMPLETE from 05/09/2022 FINDINGS: Bilateral additional mammographic views and bilateral breast ultrasound are interpreted in conjunctio n. There are numerous bilateral areas of breast nodularity, the largest measuring 2-3 cm in diameter in the central portion of the left breast. Spot compression views of new areas of nodularity seen b ilaterally show these to be well circumscribed. Bilateral breast ultrasound shows multiple bilateral breast cysts, the largest in the right breast measuring about 6 millimeters in diameter in the 6 o'c lock position and the largest in the left breast measuring about 1.5 cm in diameter in the 2 o'clock position. No solid mass identified in either breast. IMPRESSION: No specific evidence of malignancy at this time. Follow-up mammogram recommended in 12 months. BI-RADS Cat 2 - Benign Findings Breast Density - Category B - Scattered areas of fibroglandular density DATA REPOSITORY:
== END ==
PROVIDERS: PCP Family Medicine; Visit Provider Family Medicine
DX: Z12.31 Encounter for screening mammogram for malignant neoplasm of breast (principal); R92.8 Other abnormal and inconclusive findings on diagnostic imaging of breast
CPT/HCPCS: 76642; 77063; 77067

== ENCOUNTER → 2022-05-10 00:46 | Outpatient (CLI) | payer MEDICARE, BC, SELFPAY ==
--- NOTE | 2022-05-10 | DI.US_ITS ---
Exam(s) US SOFT TISSUE HEAD OR NECK EXAM: US SOFT TISSUE HEAD OR NECK CLINICAL HISTORY: RT SIDE ANT NECK LUMP, 1.5 CM, R22.1, NECK MASS. TECHNIQUE: Ultrasound was performed using standard protocol. COMPARISON: No exams were available for comparison FINDINGS: Sonographic assessment utilizing grayscale and color Doppler imaging was performed and targeted to th e area of clinical concern. Near the palpable abnormality the, there is a 6 x 1 x 5 millimeter Jovita marginated collection with a small fatty hilum consistent with a normal lymph node. IMPRESSION: No suspicious abnormality. DATA REPOSITORY:
== END ==
PROVIDERS: PCP Family Medicine; Visit Provider Family Medicine
DX: R22.1 Localized swelling, mass and lump, neck (principal)
CPT/HCPCS: 76536

== ENCOUNTER 2022-09-24 02:36 | Outpatient (CLI) | payer MEDICARE, BC, SELFPAY ==
[2022-09-24 13:46] LABS: Abs Immature Grans 0.02 10^3/uL (0.0-0.06); Absolute Basophil Count 0.03 10^3/uL (0.0-0.2); Absolute Eosinophil Count 0.12 10^3/uL (0.0-0.7); Absolute Lymphocyte Count 1.39 10^3/uL (1.2-3.4); Absolute Monocyte Count 0.52 10^3/uL (0.1-0.8); Absolute Neutrophil Count 3.84 10^3/uL (1.2-6.7); Basophils % 0.5; HCT 42.9 % (36.0-46.0); HGB 14.2 g/dL (11.2-15.7); Immature Grans % 0.3; Lymphocytes % 23.5; MCH 31.3 pg (27.0-33.0); MCHC 33.1 % (32.0-36.0); MCV 95 fL (80-95); MPV 10.7 fL (8.0-11.0); Monocytes % 8.8; Neutrophils % 64.9; Platelet Count 337 10^3/uL (130-400); RBC 4.53 10^6/uL (3.93-5.22); RDW 13.1 % (11.7-14.6); WBC 5.92 10^3/uL (4.4-10.8)
[2022-09-24 14:09] LABS: ALT 132 U/L (14-59); AST 64 U/L (15-37); Albumin 3.7 g/dL (3.4-5.0); Alkaline Phosphatase 88 U/L (46-116); Anion Gap 5.5 mmol/L (3-11); BUN 22 mg/dL (7-18); Bilirubin, Total 0.2 mg/dL (0.2-1.0); CO2 30.5 mmol/L (21.0-32.0); Calcium 9.5 mg/dL (8.5-10.1); Chloride 108 mmol/L (98-107); Estimated GFR 60.98 (mL/min/1.73m2); Glucose 118 mg/dL (74-106); Sodium 144 mmol/L (136-145); Total Protein 7.6 g/dL (6.4-8.2)
== END 2022-09-24 02:37 | disposition home or self-care (01) ==
LOC: LBO 02:36
PROVIDERS: PCP Family Medicine; Visit Provider Internal Medicine Rheumatology
DX: M05.79 Rheumatoid arthritis with rheumatoid factor of multiple sites without organ or systems involvement (principal); Z79.899 Other long term (current) drug therapy
CPT/HCPCS: 36415; 80053; 85025

== ENCOUNTER 2022-10-22 03:02 | Outpatient (CLI) | payer MEDICARE, BC, SELFPAY ==
[2022-10-22 13:11] LABS: Abs Immature Grans 0.02 10^3/uL (0.0-0.06); Absolute Basophil Count 0.04 10^3/uL (0.0-0.2); Absolute Eosinophil Count 0.16 10^3/uL (0.0-0.7); Absolute Lymphocyte Count 1.32 10^3/uL (1.2-3.4); Absolute Monocyte Count 0.53 10^3/uL (0.1-0.8); Absolute Neutrophil Count 4.21 10^3/uL (1.2-6.7); Basophils % 0.6; Eosinophils % 2.5; HCT 42.9 % (36.0-46.0); HGB 14.4 g/dL (11.2-15.7); Immature Grans % 0.3; MCH 31.9 pg (27.0-33.0); MCHC 33.6 % (32.0-36.0); MCV 95 fL (80-95); MPV 10.7 fL (8.0-11.0); Monocytes % 8.4; Neutrophils % 67.2; Platelet Count 294 10^3/uL (130-400); RBC 4.52 10^6/uL (3.93-5.22); RDW 13.3 % (11.7-14.6); RDW-SD 46.5 fL; WBC 6.28 10^3/uL (4.4-10.8)
[2022-10-22 13:42] LABS: ALT 33 U/L (14-59); AST 22 U/L (15-37); Albumin 3.8 g/dL (3.4-5.0); Alkaline Phosphatase 90 U/L (46-116); Anion Gap 5.4 mmol/L (3-11); BUN 26 mg/dL (7-18); Bilirubin, Total 0.3 mg/dL (0.2-1.0); CO2 28.6 mmol/L (21.0-32.0); CREATININE 1.1 mg/dL (0.55-1.02); Calcium 9.6 mg/dL (8.5-10.1); Chloride 105 mmol/L (98-107); Estimated GFR 54.39 (mL/min/1.73m2); Glucose 121 mg/dL (74-106); Potassium 4.5 mmol/L (3.5-5.1); Sodium 139 mmol/L (136-145); Total Protein 7.7 g/dL (6.4-8.2)
== END 2022-10-22 03:03 | disposition home or self-care (01) ==
PROVIDERS: PCP Family Medicine; Visit Provider Internal Medicine Rheumatology
DX: M05.79 Rheumatoid arthritis with rheumatoid factor of multiple sites without organ or systems involvement (principal); Z79.899 Other long term (current) drug therapy
CPT/HCPCS: 36415; 80053; 85025

== ENCOUNTER 2023-01-22 02:48 | Outpatient (CLI) | payer MEDICARE, BC, SELFPAY ==
[2023-01-22 09:14] LABS: Abs Immature Grans 0.01 10^3/uL (0.0-0.06); Absolute Basophil Count 0.03 10^3/uL (0.0-0.2); Absolute Eosinophil Count 0.21 10^3/uL (0.0-0.7); Absolute Lymphocyte Count 1.26 10^3/uL (1.2-3.4); Absolute Monocyte Count 0.65 10^3/uL (0.1-0.8); Absolute Neutrophil Count 2.88 10^3/uL (1.2-6.7); Basophils % 0.6; Eosinophils % 4.2; HCT 43.2 % (36.0-46.0); HGB 14.4 g/dL (11.2-15.7); Immature Grans % 0.2; MCH 31.4 pg (27.0-33.0); MCHC 33.3 % (32.0-36.0); MCV 94 fL (80-95); MPV 10.4 fL (8.0-11.0); Monocytes % 12.9; Neutrophils % 57.1; Platelet Count 249 10^3/uL (130-400); RBC 4.58 10^6/uL (3.93-5.22); RDW 13.2 % (11.7-14.6); RDW-SD 44.9 fL; WBC 5.04 10^3/uL (4.4-10.8)
[2023-01-22 09:40] LABS: ALT 32 U/L (14-59); AST 24 U/L (15-37); Albumin 3.7 g/dL (3.4-5.0); Alkaline Phosphatase 94 U/L (46-116); Anion Gap 5.2 mmol/L (3-11); BUN 19 mg/dL (7-18); Bilirubin, Total 0.4 mg/dL (0.2-1.0); CO2 29.8 mmol/L (21.0-32.0); CREATININE 0.9 mg/dL (0.55-1.02); Calcium 9.4 mg/dL (8.5-10.1); Chloride 109 mmol/L (98-107); Glucose 91 mg/dL (74-106); Potassium 4.6 mmol/L (3.5-5.1); Sodium 144 mmol/L (136-145); Total Protein 7.5 g/dL (6.4-8.2)
== END 2023-01-22 02:49 | disposition home or self-care (01) ==
PROVIDERS: PCP Family Medicine; Visit Provider Internal Medicine Rheumatology
DX: M05.79 Rheumatoid arthritis with rheumatoid factor of multiple sites without organ or systems involvement (principal); Z79.899 Other long term (current) drug therapy
CPT/HCPCS: 36415; 80053; 85025

== ENCOUNTER 2023-05-13 02:28 | Outpatient (CLI) | payer MEDICARE, BC, SELFPAY ==
[2023-05-13 09:40] LABS: Abs Immature Grans 0.01 10^3/uL (0.0-0.06); Absolute Basophil Count 0.04 10^3/uL (0.0-0.2); Absolute Eosinophil Count 0.21 10^3/uL (0.0-0.7); Absolute Lymphocyte Count 1.14 10^3/uL (1.2-3.4); Basophils % 0.7; Eosinophils % 3.6; HCT 44.7 % (36.0-46.0); HGB 15.1 g/dL (11.2-15.7); Immature Grans % 0.2; Lymphocytes % 19.3; MCH 31.7 pg (27.0-33.0); MCHC 33.8 % (32.0-36.0); MCV 94 fL (80-95); MPV 10.7 fL (8.0-11.0); Monocytes % 10.2; Platelet Count 268 10^3/uL (130-400); RBC 4.77 10^6/uL (3.93-5.22); RDW-SD 44.5 fL
[2023-05-13 10:29] LABS: ALT 50 U/L (14-59); AST 36 U/L (15-37); Albumin 3.9 g/dL (3.4-5.0); Alkaline Phosphatase 100 U/L (46-116); Anion Gap 4.5 mmol/L (3-11); BUN 21 mg/dL (7-18); Bilirubin, Total 0.4 mg/dL (0.2-1.0); CO2 30.5 mmol/L (21.0-32.0); CREATININE 0.9 mg/dL (0.55-1.02); Calcium 9.7 mg/dL (8.5-10.1); Chloride 105 mmol/L (98-107); Glucose 97 mg/dL (74-106); Potassium 3.9 mmol/L (3.5-5.1); Sodium 140 mmol/L (136-145)
== END 2023-05-13 02:29 | disposition home or self-care (01) ==
LOC: LBO 02:28
PROVIDERS: Internal Medicine Rheumatology; PCP Family Medicine; Visit Provider Family Medicine
DX: M05.79 Rheumatoid arthritis with rheumatoid factor of multiple sites without organ or systems involvement (principal); Z79.899 Other long term (current) drug therapy
CPT/HCPCS: 36415; 80053; 85025

== ENCOUNTER → 2023-05-21 04:01 | Outpatient (CLI) | payer MEDICARE, BC, SELFPAY ==
--- NOTE | 2023-05-21 08:35 | DI.MAMMO_ITS ---
Exam(s) MAMMO SCREENING EXAM: MAMMO SCREENING CLINICAL HISTORY: SCREENING MAMMO FOR BREAST CANCER Z12.31 TECHNIQUE: Mammograms were interpreted according to the usual protocol including computer analysis w [employer] CAD system, tomosynthesis and C-view imaging. COMPARISON: 2013 through 2021 FINDINGS: The breasts are composed of scattered fibroglandular densities, Breast Density category B. No suspicious masses or suspicious microcalcifications are seen. Stable appearance bilateral breast nodules. Cysts or noted on prior ultrasound. No skin thickening or abnormal axillary lymph nodes are seen. There has been no significant change from prior exams. IMPRESSION: BI-RADS Category 2 - Negative Mammogram with benign findings. Yearly screening mammography is recom mended. Breast Density - Category B, scattered fibroglandular densities. A negative radiographic report should not delay biopsy if a dominant or clinically suspicious mass is present. Up to ten percent of cancers are not identified on mammography. A negative report may reinforce clinical impression. Adenosis and dense breasts may obscure an underlying neoplasm. False positive reports average 6 to 10%. Patient will receive a letter notifying them of these results.
== END ==
PROVIDERS: PCP Family Medicine; Visit Provider Family Medicine
DX: Z12.31 Encounter for screening mammogram for malignant neoplasm of breast (principal)
CPT/HCPCS: 77063; 77067

== ENCOUNTER 2023-05-23 16:03 | Outpatient (REF) | payer MEDICARE, BC, SELFPAY ==
[2023-05-23 16:13] LABS: Calculated LDL 90 mg/dL (<100); Cholesterol 172 mg/dL (<200); FREE T4 1.24 ng/dL (0.76-1.46); HDL Cholesterol 69 mg/dL (40-60); Hemoglobin A1C 5.1 % (<5.7); TSH 1.12 uIU/mL (0.36-3.74); Triglyceride 65 mg/dL (<150)
[2023-05-23 16:25] LABS: Vitamin D 25 Total 51.8 ng/mL (30-100)
[2023-05-23 16:43] LABS: Creatine Kinase 77 U/L (26-192)
== END 2023-05-23 16:04 | disposition home or self-care (01) ==
LOC: NCHCN 16:03
PROVIDERS: PCP Family Medicine; Visit Provider Family Medicine
DX: E03.9 Hypothyroidism, unspecified (principal); Z00.00 Encounter for general adult medical examination without abnormal findings
CPT/HCPCS: 80061; 82306; 82550; 83036; 84439; 84443

== ENCOUNTER 2023-07-07 08:25 | Outpatient (CLI) | payer MEDICARE, BC, SELFPAY ==
--- NOTE | 2023-07-07 08:15 | RT.EKG_ITS ---
APPROVED REPORT Exam: Resting ECG Reason for Exam: Patient Location: O HR:61 bpm ECG Measurements Heart Rate 61 AXIS SD 205 P 40 QRSd 88 QRS -4 QT 406 T 18 QTc 409 Conclusion Sinus rhythm...normal P axis, V-rate 50- 99 Multiple ventricular premature complexes...V complexes w/ short R-R intervls Probable left atrial enlargement...P >50mS, <-0.10mV V1 RSR' in V1 or V2, probably normal variant...small R' only ABERRANTLY CONDUCTED ATRIAL PREMATURE COMPLEXES I have reviewed and interpreted ECG and agree with software generated interpretation.
== END 2023-07-07 08:26 | disposition home or self-care (01) ==
LOC: DI.CARD 08:26
PROVIDERS: PCP Family Medicine; Visit Provider Internal Medicine Interventional Cardiology
DX: I35.0 Nonrheumatic aortic (valve) stenosis (principal)
CPT/HCPCS: 93010

== ENCOUNTER → 2023-07-07 09:12 | Outpatient (BNVA) | payer MEDICARE, SELFPAY | PROVIDERS: PCP Family Medicine; Visit Provider Internal Medicine Interventional Cardiology | DX: I49.3 Ventricular premature depolarization (principal); E78.5 Hyperlipidemia, unspecified; I35.0 Nonrheumatic aortic (valve) stenosis; I10 Essential (primary) hypertension | CPT/HCPCS: 93005; 99213 ==

== ENCOUNTER → 2023-07-10 03:52 | Outpatient (CLI) | payer MEDICARE, SELFPAY ==
--- NOTE | 2023-07-10 | DI.DEXA_ITS ---
Exam(s) XR DEXA BONE DENSITY W/WO MATT EXAM: XR DEXA BONE DENSITY W/WO MATT CLINICAL HISTORY: SCREENING FOR OSTEOPOROSIS IN POSTMENOPAUSAL WOMAN,Z78.0 TECHNIQUE: Routine DEXA evaluation of the lumbar spine, hip, or forearm. COMPARISON: CR XR DEXA BONE DENSITY W/WO MATT from 07/05/2021 FINDINGS: Performed on a Hologic unit. Lateral image: No compression fracture evident. Lumbar Spine total T-score: -2.3 Hip total T-score:-2.2 Independent reading at the level of the femoral neck yields T-score of -2.4 Forearm total T-score: -2.6 IMPRESSION: Bone mineral density measures in the osteopenia bordering on osteoporosis range. Fracture risk is mo derate-high. Note: Any spine fracture indicates 5x risk for subsequent spine fracture and 2x risk for subsequent h ip fracture. World Health Organization criteria for BMD interpretation classify patients: Normal...... T- Score at or above -1.0 Osteopenic... T- Score between -1.0 and -2.5 Osteoporosis... T-Score at or below -2.5
== END ==
PROVIDERS: PCP Family Medicine; Visit Provider Family Medicine
DX: Z78.0 Asymptomatic menopausal state (principal); Z13.820 Encounter for screening for osteoporosis; M81.0 Age-related osteoporosis without current pathological fracture
CPT/HCPCS: 77080

== ENCOUNTER 2023-08-20 03:54 | Outpatient (CLI) | payer MEDICARE, SELFPAY ==
[2023-08-20 12:57] LABS: Abs Immature Grans 0.02 10^3/uL (0.0-0.06); Absolute Basophil Count 0.04 10^3/uL (0.0-0.2); Absolute Eosinophil Count 0.19 10^3/uL (0.0-0.7); Absolute Lymphocyte Count 1.64 10^3/uL (1.2-3.4); Absolute Monocyte Count 0.73 10^3/uL (0.1-0.8); Absolute Neutrophil Count 3.79 10^3/uL (1.2-6.7); Basophils % 0.6; HCT 45.1 % (36.0-46.0); HGB 15.5 g/dL (11.2-15.7); Immature Grans % 0.3; Lymphocytes % 25.6; MCH 32.2 pg (27.0-33.0); MCHC 34.4 % (32.0-36.0); MCV 94 fL (80-95); MPV 11.8 fL (8.0-11.0); Monocytes % 11.4; Neutrophils % 59.1; Platelet Count 257 10^3/uL (130-400); RBC 4.81 10^6/uL (3.93-5.22); RDW 12.7 % (11.7-14.6); RDW-SD 43.8 fL; WBC 6.41 10^3/uL (4.4-10.8)
[2023-08-20 13:19] LABS: ALT 27 U/L (14-59); AST 20 U/L (15-37); Albumin 3.8 g/dL (3.4-5.0); Alkaline Phosphatase 93 U/L (46-116); Anion Gap 10.9 mmol/L (3-11); BUN 15 mg/dL (7-18); Bilirubin, Total 0.3 mg/dL (0.2-1.0); CO2 26.1 mmol/L (21.0-32.0); CREATININE 0.9 mg/dL (0.55-1.02); Calcium 9.9 mg/dL (8.5-10.1); Chloride 105 mmol/L (98-107); Estimated GFR 68.77 (mL/min/1.73m2); Glucose 99 mg/dL (74-106); Potassium 4.5 mmol/L (3.5-5.1); Sodium 142 mmol/L (136-145); Total Protein 7.8 g/dL (6.4-8.2)
== END 2023-08-20 03:55 | disposition home or self-care (01) ==
PROVIDERS: PCP Family Medicine; Visit Provider Internal Medicine Rheumatology
DX: Z79.899 Other long term (current) drug therapy (principal); M05.79 Rheumatoid arthritis with rheumatoid factor of multiple sites without organ or systems involvement
CPT/HCPCS: 36415; 80053; 85025

== ENCOUNTER 2023-11-11 05:22 | Outpatient (CLI) | payer MEDICARE, SELFPAY ==
[2023-11-11 14:23] LABS: Abs Immature Grans 0.02 10^3/uL (0.0-0.06); Absolute Basophil Count 0.03 10^3/uL (0.0-0.2); Absolute Eosinophil Count 0.22 10^3/uL (0.0-0.7); Absolute Lymphocyte Count 1.59 10^3/uL (1.2-3.4); Absolute Monocyte Count 0.76 10^3/uL (0.1-0.8); Absolute Neutrophil Count 3.69 10^3/uL (1.2-6.7); Basophils % 0.5 %; Eosinophils % 3.5 %; HCT 43.7 % (36.0-46.0); HGB 14.9 g/dL (11.2-15.7); Immature Grans % 0.3 %; Lymphocytes % 25.2 %; MCH 32.3 pg (27.0-33.0); MCHC 34.1 % (32.0-36.0); MCV 95 fL (80-95); MPV 11.1 fL (8.0-11.0); Neutrophils % 58.5 %; Platelet Count 244 10^3/uL (130-400); RBC 4.62 10^6/uL (3.93-5.22); RDW 12.5 % (11.7-14.6); RDW-SD 43.6 fL; WBC 6.31 10^3/uL (4.4-10.8)
[2023-11-11 15:49] LABS: ALT 34 U/L (14-59); AST 22 U/L (15-37); Albumin 3.7 g/dL (3.4-5.0); Alkaline Phosphatase 85 U/L (46-116); Anion Gap 11.2 mmol/L (3-11); BUN 21 mg/dL (7-18); Bilirubin, Total 0.4 mg/dL (0.2-1.0); CO2 25.8 mmol/L (21.0-32.0); CREATININE 0.9 mg/dL (0.55-1.02); Chloride 107 mmol/L (98-107); Estimated GFR 68.77 (mL/min/1.73m2); Glucose 108 mg/dL (74-106); Potassium 4.3 mmol/L (3.5-5.1); Sodium 144 mmol/L (136-145)
== END 2023-11-11 05:23 | disposition home or self-care (01) ==
PROVIDERS: PCP Family Medicine; Visit Provider Internal Medicine Rheumatology
DX: M05.79 Rheumatoid arthritis with rheumatoid factor of multiple sites without organ or systems involvement (principal); Z79.899 Other long term (current) drug therapy
CPT/HCPCS: 36415; 80053; 85025

== ENCOUNTER → 2023-12-25 08:43 | Outpatient (BNVA) | payer MEDICARE, SELFPAY | PROVIDERS: PCP Family Medicine; Referring Provider Family Medicine; Visit Provider Physical Therapy Assistant | DX: Z12.11 Encounter for screening for malignant neoplasm of colon (principal) ==

== ENCOUNTER 2023-12-29 08:55 | Day surgery (SDC) | payer MEDICARE, SELFPAY ==
--- NOTE | 2023-12-28 13:59 | PDOC.DSDIS_ITS ---
Date of service: 12/29/23 Time of Service: 11:06 Discharge Plan Disposition Patient Disposition: Home Condition: Good Discharge Details Reason For Visit: screening colonocsopy Attending Provider: Rogelio Marcus Primary Care Provider: Lili Wang V Home Meds and New Rx's Prescriptions: Continued multivitamin tablet 1 tab PO DAILY ascorbic acid (vitamin C) 1,000 mg tablet 1 gm PO DAILY omega-3 fatty acids [Fish Oil Concentrate] 1,000 mg capsule 1,000 mg PO DAILY levothyroxine 75 mcg tablet 75 mcg PO DAILY ibuprofen [Advil] 200 mg tablet 200 mg PO Q6H PRN folic acid 1 mg tablet 1 mg PO DAILY methotrexate sodium 2.5 mg tablet 7.5 mg PO QWEEK Patient Comments: 06/15/18- take 3 tablets orally once a week per [facility] medication list hydroxychloroquine 200 mg tablet 300 mg PO DAILY lovastatin 10 mg tablet 10 mg PO DAILY metoprolol tartrate 25 mg tablet See Rx Instructions .ROUTE .COMPLEX Qty: 90 3RF Dose Instruction: TAKE 1/2 TABLET BY MOUTH TWO TIMES A DAY Rx Instructions: TAKE 1/2 TABLET BY MOUTH TWO TIMES A DAY Discontinued bisacodyl [Dulcolax (bisacodyl)] 5 mg tablet,delayed release (DR/EC) 5 mg PO ONCE Qty: 4 0RF Rx Instructions: Take per colonoscopy instructions provided by ordering providers office polyethylene glycol 3350 17 gram/dose powder 17 g PO ONCE Qty: 238 0RF Rx Instructions: Take per colonoscopy instructions provided by ordering providers office Discharge Instructions Instructions: Diverticulosis Additional Instructions: Rubi, was so happy to see you today, and I am glad that you and Eagle have been doing well. Your colonoscopy went very smoothly. I hope you are comfortable. You do have some diverticulosis. Diverticula are little weak spots in the muscular part of the colon wall. They typically accumulate as we age. They can get infected and inflamed, and when that happens, it typically presents as pain usually across the left lower side of the abdomen. Patients are usually quite ill with fevers and general malaise. We call these episodes of inflammation diverticulitis. Antibiotics are typically used to treat those events. I hope you are is never bother you. I have attached some general information here about diverticular disease, but my basic recommendation to all patients is to make sure they have plenty of fiber in your diet, targeting approximately 20 to 30 g/day. You have a little bit of internal hemorrhoids as well. Hydration and fiber are the mainstay of therapy for hemorrhoids as well. Otherwise, your colonoscopy was totally negative. I would encourage you to consider another 1 in 10 years. If you have any questions at all, please do not hesitate to call or ask at any time. 1. If tolerated, consume a soft, low fiber diet for 1-2 days. 2[address] Do not drive, drink alcohol, operate machinery, make critical decisions, or do activities that require coordination or balance for 24 hours. 3. Because air was put into your colon during the procedure, expelling air from your rectum (passing gas or farting) is normal. 4. You may not have a bowel movement for 1-3 days because of the colonoscopy prep. This is normal. 5. Go directly to the emergency room if you notice any of the following: Develop chills (warm to touch), or if you have a thermometer and your temperature is above 101 Difficulty breathing or difficultly swallowing Persistent vomiting Severe abdominal pain, other than gas cramps Severe chest pain Black, tarry stools Any bleeding ? exceeding one tablespoon 6. Call your physician if the site where your intravenous was started becomes red, swollen, painful, and warm to touch. 7. Your physician has reviewed your pre-procedure medications. Please continue to take those medications as previously ordered. You will be given specific information/education regarding any changes to your medications before leaving. Activity:: Activity as Tolerated Diet:: As Tolerated Discharge Orders Discharge Orders: Discharge Order (Routine); Ordered 12/28/23 Ordered By: Rogelio Marcus DS: Diagnosis Discharge Diagnosis (1) Encounter for screening colonoscopy: Status: Acute Asessment and Plan: Diverticulosis; otherwise negative screening colonoscopy. Follow-up recommended for 10 years
--- NOTE | 2023-12-28 14:01 | W.COLOREPORT ---
Date of service: 12/29/23 Time of Service: 11:09 Colonoscopy Report Date of procedure: 12/29/23 Pre-op diagnosis general: screening colonoscopy Post-op diagnosis procedure note: other (Internal hemorrhoids, diverticulosis) Procedure: colonoscopy Surgeon: Rogelio Marcus Anesthesia Type: General:No Airway Estimated blood loss (mL): 0 Pathology: none sent Complications: None Disposition: same day Indications: Rubi is a 68 year old woman who needs her next screening colonoscopy Prep: Miralax/Dulcolax Procedure Start Time: 10:39 Procedure End Time: 11:04 Retraction Time: 12 Findings: Internal hemorrhoids and diverticulosis Procedure Description: After the induction of anesthesia, and with the patient in left lateral decubitus position, I began by performing an external anorectal exam.? Perineum and skin were normal, as was the anal verge.? There was no evidence of external hemorrhoids.? Next, I performed a digital rectal exam.? I did not appreciate any abnormal findings.? Next, I advanced a colonoscope into the rectal vault.? I performed retroflexion.? There are internal hemorrhoids.? Using insufflation, I then advanced the colonoscope beyond the rectal folds and into the sigmoid colon before advancing towards the cecum.? The scope was noted to be in the cecum by identification of the ileocecal valve and appendiceal orifice.? I then began withdrawing the colonoscope using repeated irrigation as necessary for full evaluation of the colonic mucosa. There were some occasional diverticula noticed in all segments of the colon, with a more heavy focus of diverticulosis in the sigmoid colon. ?Once the scope was withdrawn to the level of the rectum, great care was taken to examine portions of the rectal folds.? Finally, the scope was withdrawn and the patient was brought to the same-day surgery recovery unit as the anesthetic wore off. ?The findings and instructions were shared with the patient prior to discharge. [place] Bowel Prep [place] Bowel Prep Right Colon: 2 Left Colon: 3 Transverse Colon: 3 Total Score: 8
[2023-12-29 09:02] VITALS: BP 140/93; PULSE 88; RESP 20; TEMP 36.6; O2SAT 97
--- NOTE | 2023-12-29 09:19 | ANES.PREOP_ITS ---
General Info Date of Service Date Performed: 12/29/23 Height: 5 ft 3 in Weight: 80.739 kg Body Mass Index (BMI): 31.5 Surgical Procedure: Operation Date: 12/29/23 10:35 Proposed Procedure Side Surgeon jeanie Marcus MD Meds Allergies and Home Medications Allergies Allergy/AdvReac Type Severity Reaction Status Date / Time lisinopril AdvReac Intermediate Cough Verified 12/29/23 09:30 Home Medication ?Medication ?Instructions ?Recorded ascorbic acid (vitamin C) 1,000 mg 1 gm PO DAILY 06/15/18 tablet folic acid 1 mg tablet 1 mg PO DAILY 06/15/18 ibuprofen 200 mg tablet (Advil) 200 mg PO Q6H PRN 06/15/18 levothyroxine 75 mcg tablet 75 mcg PO DAILY 06/15/18 multivitamin 1 tab PO DAILY 06/15/18 omega-3 fatty acids 1,000 mg 1,000 mg PO DAILY 06/15/18 capsule (Fish Oil Concentrate) methotrexate sodium 2.5 mg tablet 7.5 mg PO QWEEK 05/24/19 lovastatin 10 mg tablet 10 mg PO DAILY 07/09/21 hydroxychloroquine 200 mg tablet 300 mg PO DAILY 07/07/23 metoprolol tartrate 25 mg tablet See Rx Instructions .Route 07/18/23 .COMPLEX #90 tabs Current Visit Medications: Current Medications Generic Name Dose Route Start Last Admin Trade Name Freq PRN Reason Stop Dose Admin Ringer's Solution 1,000 mls @ 80 mls/hr 12/29/23 06:00 IV 12/29/23 23:59 INFUSION [facility] IV Miscellaneous Supplies 1 each 12/29/23 06:00 Iv Access IV 12/29/23 23:59 DIRECTED ELISA Ondansetron HCl 4 mg 12/28/23 14:03 Ondansetron 4 Mg/2 Ml Vial IVP 01/27/24 14:02 Q4H PRN PRN Nausea / Vomiting Sodium Chloride 0 ml 12/29/23 06:00 Normal Saline Flush 10 Ml Syr IV 12/29/23 23:59 PRN PRN Sodium Chloride 0 ml 12/29/23 06:00 Normal Saline 10 Ml Vial IJ 12/29/23 23:59 DIRECTED PRN Sterile Water 0 ml 12/29/23 06:00 Water,Injection,Sterile 10 Ml Vial IJ 12/29/23 23:59 DIRECTED PRN PFSH Active Problems Active Problems: Problem Status Onset Code Encounter for screening colonoscopy Acute Z12.11 Interpolated PVCs Acute I49.3 Aortic stenosis Chronic I35.0 Medical History Medical History (Updated 12/29/23 @ 09:30 by Mali Hernandez) Heart murmur Gastroesophageal reflux disease Hypothyroidism Hyperlipidemia Surgical History Surgical History (Updated 12/29/23 @ 09:30 by Mali Hernandez) History of section Hx of appendectomy Abdominal hysterectomy Tobacco Smoking/Tobacco Use Status: Never Alcohol Alcohol Intake: never Substance Use Substance use: Never Substance use type: does not use Vital Signs and Lab Results Vital Signs Most Recent Vital Signs in EMR: Temp Pulse Resp BP Pulse Ox 36.6 C 88 20 140/93 H 97 12/29/23 09:02 12/29/23 09:02 12/29/23 09:02 12/29/23 09:02 12/29/23 09:02 Lab Results Blood Type / Crossmatch: No Data to Display Complete Blood Count: No Data to Display Complete Metabolic Panel: No Data to Display Liver Function Panel: No Data to Display Coagulation Panel: No Data to Display Cardiac Panel: No Data to Display Arterial Blood Gas: No Data to Display Venous Blood Gas: No Data to Display Pancreas Panel: No Data to Display Thyroid Panel: No Data to Display Infectious Disease: No Data to Display Blood Cultures: No Data to Display Toxicology Panel: No Data to Display Imaging and Studies Imaging and Studies Study information below may be from another EMR and interpreted by another provider. Please see original notes in EMR for more complete details. EKG Summary: 07/02: sinus, PVCs. Echocardiogram Summary: 06/30: LVEF 66%, trace AR. trace MR. mild TR. Anesthesia Assessment and Plan Anesthesia History Personal History: No History of Anesthesia Complications Family History: No Family History of Anesthesia Complications Exercise Tolerance Exercise Tolerance: Metabolic Equivalents>4 Pertinent Negatives Pertinent Negatives: No Symptoms of GERD, No Major Pulmonary Symptoms or Complaints and No History of CVA/TIA Cardiac & Pulmonary Exam Cardiac Exam: Heart Murmur Present Pulmonary Exam: Clear Bilateral Breath Sounds Implantable Cardiac Device Does patient have a Pacemaker or an ICD?: No Airway Exam Known Difficult Airway: No Mallampati Class: 2 Mouth Opening: Normal (> 3cm) Thyromental Distance: Greater than 3 cm Neck Range of Motion: Full ROM Neck Circumference: Normal Teeth Condition: Normal Dentition and Generalized Poor Dentition ASA Classification ASA Score: ASA 2 Emergency Case?: No NPO Status NPO Status: NPO Clears >2 hours, Solids >8 hours Anesthesia Plan Resuscitation Status: Full Code Anesthesia Technique: General Anesthesia Airway Planned: Natural Airway Monitors Used: Standard Monitors Preoperative Comments:: 68 yo female for colo. Sig PMHx: HTN, GERD, hypothyroid (on replacement), on methotrexate and hydroxychloroquine
[2023-12-29] MEDS: Lactated Ringers 1,000 ML 80 ML IV (10:15)
[2023-12-29 10:26] VITALS: BMI 31.5
[2023-12-29 11:06] VITALS: BP 144/88; PULSE 87; RESP 16; TEMP 36.5; O2SAT 99
[2023-12-29 11:35] VITALS: BP 140/87; PULSE 78; RESP 16; TEMP 36.4; O2SAT 96
--- NOTE | 2023-12-29 12:01 | W.ANESPOSTOP ---
Postoperative Evaluation Date, Time and Location Date Performed: 12/29/23 Time Performed: 11:06 Patient Location: Day Surgery Unit Vital Signs Most Recent Imported Vital Signs: Most Recent Vital Signs Temp Pulse Resp BP Pulse Ox 36.4 C L 78 16 140/87 96 12/29/23 11:35 12/29/23 11:35 12/29/23 11:35 12/29/23 11:35 12/29/23 11:35 VS from 1106 reviewed Pain Score Most Recent Pain Score: Most Recent Pain Score Pain Level 0 12/29/23 11:35 Assessment Mental Status: Awake (Alert & Oriented to Patient Baseline) Airway and Respiratory Function: Patent airway with normal (patient baseline) respiratory exam Cardiovascular Function: Hemodynamically Stable Hydration Status: Adequately Hydrated Nausea & Vomiting: No Nausea or Vomiting Pain: Pt. Denies Any Pain Peripheral Nerve Block: Patient did not receive a nerve block
== END 2023-12-29 11:47 | disposition home or self-care (01) ==
LOC: SUR 08:56
PROVIDERS: PCP Family Medicine; Visit Provider Surgery
PROC: 0DJD8ZZ Inspection of Lower Intestinal Tract, Via Natural or Artificial Opening Endoscopic (ICD-10-PCS; CPT 45378; principal; 2023-12-29 10:30)
DX: Z12.11 Encounter for screening for malignant neoplasm of colon (principal); K64.8 Other hemorrhoids; K57.30 Diverticulosis of large intestine without perforation or abscess without bleeding; I10 Essential (primary) hypertension
CPT/HCPCS: G0121; J2704

== ENCOUNTER 2024-02-26 18:28 | Outpatient (REF) | payer MEDICARE, SELFPAY ==
[2024-02-26 22:44] LABS: TSH (W/Ref FT4) 0.67 uIU/mL (0.36-3.74)
[2024-02-27 17:43] LABS: T3,Free 3.8 pg/mL (2.8-5.3)
== END 2024-02-26 18:29 | disposition home or self-care (01) ==
LOC: NCHCN 18:28
PROVIDERS: PCP Family Medicine; Visit Provider Family Medicine
DX: E03.9 Hypothyroidism, unspecified (principal)
CPT/HCPCS: 84443; 84481

== ENCOUNTER 2024-04-19 03:04 | Outpatient (CLI) | payer MEDICARE, SELFPAY ==
[2024-04-19 08:44] LABS: Abs Immature Grans 0.02 10^3/uL (0.0-0.06); Absolute Basophil Count 0.04 10^3/uL (0.0-0.2); Absolute Eosinophil Count 0.22 10^3/uL (0.0-0.7); Absolute Lymphocyte Count 1.08 10^3/uL (1.2-3.4); Absolute Monocyte Count 0.54 10^3/uL (0.1-0.8); Absolute Neutrophil Count 4.77 10^3/uL (1.2-6.7); Basophils % 0.6 %; Eosinophils % 3.3 %; HCT 45.2 % (36.0-46.0); HGB 15.4 g/dL (11.2-15.7); Immature Grans % 0.3 %; Lymphocytes % 16.2 %; MCH 32.5 pg (27.0-33.0); MCHC 34.1 % (32.0-36.0); MCV 95 fL (80-95); MPV 10.7 fL (8.0-11.0); Monocytes % 8.1 %; Neutrophils % 71.5 %; Platelet Count 265 10^3/uL (130-400); RBC 4.74 10^6/uL (3.93-5.22); RDW 12.5 % (11.7-14.6); RDW-SD 43.8 fL; WBC 6.67 10^3/uL (4.4-10.8)
[2024-04-19 09:50] LABS: ALT 32 U/L (14-59); AST 23 U/L (15-37); Albumin 3.6 g/dL (3.4-5.0); Alkaline Phosphatase 94 U/L (46-116); BUN 22 mg/dL (7-18); CREATININE 0.9 mg/dL (0.55-1.02); Calcium 9.9 mg/dL (8.5-10.1); Chloride 107 mmol/L (98-107); Estimated GFR 68.77 (mL/min/1.73m2); Glucose 97 mg/dL (74-106); Potassium 4.1 mmol/L (3.5-5.1); Sodium 144 mmol/L (136-145); Total Protein 7.7 g/dL (6.4-8.2)
== END 2024-04-19 03:05 | disposition home or self-care (01) ==
LOC: LBO 03:04
PROVIDERS: Internal Medicine Rheumatology; PCP Family Medicine; Visit Provider Family Medicine
DX: E03.9 Hypothyroidism, unspecified (principal); Z79.899 Other long term (current) drug therapy; M05.79 Rheumatoid arthritis with rheumatoid factor of multiple sites without organ or systems involvement
CPT/HCPCS: 36415; 80053; 84439; 85025

== ENCOUNTER 2024-07-07 03:11 | Outpatient (CLI) | payer MEDICARE, SELFPAY ==
--- NOTE | 2024-07-07 08:30 | DI.US_ITS ---
APPROVED REPORT EXAM: Comprehensive 2D, Doppler, and color-flow Echocardiogram Patient Location: Out-Patient Information Assurance Manager: Audie Damon RDCS (AE) Indications: Aortic stenosis, CHF Conclusion Normal left ventricular wall thickness and chamber size. Ejection fraction is 58%. Wall motion is n ormal Normal right ventricular size and function Both atria are normal in size Aortic valve is trileaflet and mildly sclerotic. There is mild aortic stenosis with a mean gradient of 11 mmHg. There is trace aortic regurgitation Ascending aorta measures 3.8 cm Wall motion Left Ventricle The left ventricle is normal size. The left ventricular systolic function is normal. The left ventric ular ejection fraction is within the normal range. There is normal left ventricular wall thickness. T here is normal LV segmental wall motion. There is no ventricular septal defect visualized. LVEF is 55 -60%. Right Ventricle The right ventricle is normal size. The right ventricular systolic function is normal. Atria The left atrium size is normal. The right atrium size is normal. The interatrial septum is intact wit h no evidence for an atrial septal defect. Aortic Valve The aortic valve is mildly sclerotic. Aortic valve is trileaflet. There is mild aortic stenosis. Mean gradient is 11 mmHg Trace aortic regurgitation. Mitral Valve The mitral valve is normal in structure. No evidence of mitral valve stenosis. Trace mitral regurgita tion. Tricuspid Valve The tricuspid valve is normal in structure. There is no tricuspid valve stenosis. Mild tricuspid regu rgitation. The RVSP is 30 mmHg. Pulmonic Valve The pulmonary valve is normal in structure. There is no pulmonic valvular stenosis. Trace to mild pul scott regurgitation. Great Vessels The aortic root is normal in size. The ascending aorta is mildly dilated IVC is normal in size and co llapses >50% with inspiration. Pericardium There is no pericardial effusion. 2D Dimensions IVSD d PLAX 0.72 cm F: 0.6-1.0 Ao Root d 2.97 cm F: 2.7 - 3.3 LVPW d PLAX 0.67 cm F: 0.6 - 1.0 Ao Asc Diam d 3.80 cm F: 2.3 - 3.1 LVID d PLAX 5.22 cm F: 3.8 - 5.2 Prox Ao Arch 3.4 cm LVDs 3.54 cm F: 2.2 - 3.5 LV EF Teichholz 59.8 % FS 32.06 % LV EDV (Teich) 130.5 mL LV ESV (Teich) 52.4 mL Stroke Vol Index (Teich) 42.19 M-Mode TAPSE 1.70 cm (M/F) >1.7 Auto EF LV EDV A4C 106.8 mL LV EDV A2C 77.4 mL LV EDV BP 93.8 mL LV ESV A4C 48.5 mL LV ESV A2C 30.6 mL LV ESV BP 39.0 mL LVEF(%) A4C 54.5 % LVEF(%) A2C 60.4 % LVEF(%) BP 58.5 % LV SV A4C 58.2 ml LV SV A2C 46.7 ml LV SV BP 54.8 ml LV CO A4C 4.1 L/min LV CO A2C 3.0 L/min LV CO BP 3.5 L/min HR A4C 70.04 BPM HR A2C 63.92 BPM LV EDV Index (BP) LA Volume LA Length A4C 5.1 cm LA Length A2C 4.5 cm LA Area A4C s 8.54 cm2 LA Area A2C s 9.92 cm2 LA Vol A4C A-L 12.23 mL LA Vol A2C A-L 18.61 mL LA Vol Biplane A-L 16.0 mL LA Vol/BSA A4C A-L LA Vol/BSA A2C A-L LA Vol/BSA BP A-L 8.7 mL/m2 LA Vol A4C MOD 11.6 mL LA Vol A2C MOD 18.5 mL LA Vol BP MOD 15.3 mL RA Volume RA Area A4C 11.1 cm2 RA ESV A4C (A-L) 27.4mL RA Vol/BSA A4C A-L RA Length A4C 3.8 cm RA ESV A4C (MOD) 26.7mL LV Diastology MV E' medial 0.049 (>0.07 m/s) MV E Vmax 0.62 (0.4-1.3 m/s) MV E/E' MED 12.45 (<14) MV A Vmax 0.95 (0.4-1.3 m/s) MV E' lateral 0.046 (>0.1 m/s) E/A Ratio 0.7 MV E/E' LAT 13.32 (<14) MV E' Average 0.048 m/s MV E/E'(average) 12.87 Aortic Valve AoV Vmax 2.12 m/s LVOT Vmax 0.78 m/s AoV Peak Grad 27.9 mmHg LVOT Peak Grad 2.4 mmHg AoV Area (Vmax) 1.21 cm2 LVOT VTI 0.181 m AoV VTI 0.490 m LVOT Mean Grad 1.5 mmHg AoV Mean Doyle. 1.57 m/s LVOT SV 59.48 mL AoV Mean Grad 11.0 mmHg LVOT Diam s 2.00 cm AoV Area (VTI) 1.21 cm2 AV Regurg Peak Gr. 17.97 mmHg Velocity Ratio 0.37 AR Decel [place] 2.1m/sec2 AR DT 1494 msec AR PHT 433 msec AR Vmax 3.08 m/s Mitral Valve MV DT 231 (160-240 msec) MV Vmax TIPS 0.92 m/s MV Mean Grad 1.2 (<2mmHg) MV VTI 0.279 m Pulmonary Valve PV Vmax 0.76 (0.5-1.5 m/s) RVOT Vmax 0.62 m/s PV Peak Grad 2.3 mmHg RVOT Peak Gr. 1.5 mmHg PV Mean Doyle 0.53 m/s RVOT VTI 0.130 m PV Mean Grad 1.3 mmHg RVOT Mean Gr. 0.7 mmHg Tricuspid Valve RA Pressure 3.00 mmHg TR Vmax 2.58 m/s TR Peak Grad 26.6 mmHg RVSP (TR) 29.6 mmHg
== END 2024-07-07 03:31 ==
PROVIDERS: PCP Family Medicine; Visit Provider Internal Medicine Cardiovascular Disease
DX: I50.9 Heart failure, unspecified (principal); I35.0 Nonrheumatic aortic (valve) stenosis
CPT/HCPCS: 93306

== ENCOUNTER 2024-09-15 02:05 | Outpatient (CLI) | payer MEDICARE, SELFPAY ==
[2024-09-15 11:08] LABS: Abs Immature Grans 0.01 10^3/uL (0.0-0.06); Absolute Basophil Count 0.03 10^3/uL (0.0-0.2); Absolute Eosinophil Count 0.18 10^3/uL (0.0-0.7); Absolute Lymphocyte Count 1.27 10^3/uL (1.2-3.4); Absolute Neutrophil Count 3.71 10^3/uL (1.2-6.7); Basophils % 0.5 %; Eosinophils % 3.1 %; HCT 44.7 % (36.0-46.0); HGB 14.8 g/dL (11.2-15.7); Immature Grans % 0.2 %; Lymphocytes % 21.9 %; MCH 32.3 pg (27.0-33.0); MCHC 33.1 % (32.0-36.0); MCV 98 fL (80-95); MPV 10.9 fL (8.0-11.0); Monocytes % 10.3 %; Platelet Count 251 10^3/uL (130-400); RBC 4.58 10^6/uL (3.93-5.22); RDW 12.4 % (11.7-14.6); RDW-SD 44.7 fL
[2024-09-15 11:34] LABS: ALT 31 U/L (14-59); AST 23 U/L (15-37); Albumin 3.7 g/dL (3.4-5.0); Alkaline Phosphatase 97 U/L (46-116); Anion Gap 6.2 mmol/L (3-11); BUN 21 mg/dL (7-18); Bilirubin, Total 0.4 mg/dL (0.2-1.0); CO2 29.8 mmol/L (21.0-32.0); CREATININE 0.8 mg/dL (0.55-1.02); Calcium 9.6 mg/dL (8.5-10.1); Chloride 107 mmol/L (98-107); Estimated GFR 78.72 (mL/min/1.73m2); Glucose 106 mg/dL (74-106); Potassium 4.6 mmol/L (3.5-5.1); Sodium 143 mmol/L (136-145); Total Protein 7.4 g/dL (6.4-8.2)
[2024-09-15 11:45] LABS: FREE T4 1.02 ng/dL (0.76-1.46); TSH 1.35 uIU/mL (0.36-3.74)
== END 2024-09-15 02:06 | disposition home or self-care (01) ==
LOC: LBO 02:05
PROVIDERS: PCP Family Medicine; Visit Provider Internal Medicine Rheumatology
DX: E03.9 Hypothyroidism, unspecified (principal); Z79.899 Other long term (current) drug therapy
CPT/HCPCS: 36415; 80053; 84439; 84443; 85025

== ENCOUNTER 2024-12-21 03:39 | Outpatient (CLI) | payer MEDICARE, SELFPAY ==
[2024-12-21 13:15] LABS: Abs Immature Grans 0.02 10^3/uL (0.0-0.06); HCT 42.4 % (36.0-46.0); HGB 14.7 g/dL (11.2-15.7); Immature Grans % 0.3 %; MCH 32.1 pg (27.0-33.0); MCHC 34.7 % (32.0-36.0); MCV 93 fL (80-95); MPV 11.3 fL (8.0-11.0); Platelet Count 257 10^3/uL (130-400); RBC 4.58 10^6/uL (3.93-5.22); RDW 12.7 % (11.7-14.6); RDW-SD 43.3 fL; WBC 7.09 10^3/uL (4.4-10.8)
[2024-12-21 14:13] LABS: ALT 32 U/L (14-59); AST 23 U/L (15-37); Albumin 3.9 g/dL (3.4-5.0); Alkaline Phosphatase 115 U/L (46-116); Anion Gap 9.7 mmol/L (3-11); BUN 25 mg/dL (7-18); Bilirubin, Total 0.4 mg/dL (0.2-1.0); CO2 25.3 mmol/L (21.0-32.0); Calcium 9.8 mg/dL (8.5-10.1); Chloride 108 mmol/L (98-107); Estimated GFR 68.35 (mL/min/1.73m2); Glucose 106 mg/dL (74-106); Potassium 4.4 mmol/L (3.5-5.1); Sodium 143 mmol/L (136-145); Total Protein 7.5 g/dL (6.4-8.2)
== END 2024-12-21 03:40 | disposition home or self-care (01) ==
PROVIDERS: PCP Family Medicine; Visit Provider Internal Medicine Rheumatology
DX: Z79.899 Other long term (current) drug therapy (principal); M05.79 Rheumatoid arthritis with rheumatoid factor of multiple sites without organ or systems involvement
CPT/HCPCS: 36415; 80053; 85025

== ENCOUNTER 2025-01-14 15:26 | Outpatient (REF) | payer MEDICARE, SELFPAY ==
[2025-01-14 15:52] LABS: TSH 1.35 uIU/mL (0.36-3.74)
== END 2025-01-14 15:27 | disposition home or self-care (01) ==
LOC: NCHCN 15:26
PROVIDERS: PCP Family Medicine; Visit Provider Family Medicine
DX: E03.9 Hypothyroidism, unspecified (principal)
CPT/HCPCS: 84439; 84443

== ENCOUNTER 2025-04-13 03:21 | Outpatient (CLI) | payer MEDICARE, SELFPAY ==
[2025-04-13 11:31] LABS: Abs Immature Grans 0.02 10^3/uL (0.0-0.06); HCT 42.7 % (36.0-46.0); HGB 14.5 g/dL (11.2-15.7); Immature Grans % 0.3 %; MCH 32.1 pg (27.0-33.0); MCHC 34.0 % (32.0-36.0); MCV 95 fL (80-95); MPV 10.9 fL (8.0-11.0); Platelet Count 273 10^3/uL (130-400); RBC 4.52 10^6/uL (3.93-5.22); RDW 12.6 % (11.7-14.6); RDW-SD 43.5 fL; WBC 7.07 10^3/uL (4.4-10.8)
[2025-04-13 12:21] LABS: ALT 38 U/L (14-59); AST 27 U/L (15-37); Albumin 3.8 g/dL (3.4-5.0); Alkaline Phosphatase 99 U/L (46-116); Anion Gap 9.0 mmol/L (3-11); BUN 19 mg/dL (7-18); Bilirubin, Total 0.5 mg/dL (0.2-1.0); CO2 29.0 mmol/L (21.0-32.0); Calcium 9.7 mg/dL (8.5-10.1); Chloride 104 mmol/L (98-107); Glucose 87 mg/dL (74-106); Potassium 4.5 mmol/L (3.5-5.1); Sodium 142 mmol/L (136-145); Total Protein 7.5 g/dL (6.4-8.2)
== END 2025-04-13 03:22 | disposition home or self-care (01) ==
LOC: LBO 03:22
PROVIDERS: PCP Family Medicine; Visit Provider Internal Medicine Rheumatology
DX: E03.9 Hypothyroidism, unspecified (principal); Z79.899 Other long term (current) drug therapy; M05.79 Rheumatoid arthritis with rheumatoid factor of multiple sites without organ or systems involvement
CPT/HCPCS: 36415; 80053; 84439; 85025

== ENCOUNTER → 2025-05-27 00:08 | Outpatient (CLI) | payer MEDICARE, SELFPAY ==
--- NOTE | 2025-05-27 09:16 | DI.MAMMO_ITS ---
Exam(s) MAMMO SCREENING EXAM: MAMMO SCREENING CLINICAL HISTORY: SCREENING, Z12.31 TECHNIQUE: Bilateral full field digital CC and MLO mammographic images were obtained with 3D tomosynthesis and utilizing computer aided detection (CAD). COMPARISON: Comparison is made with prior examinations. FINDINGS: Masses/Architectural Distortion: No suspicious masses or areas of architectural distortion are present. There are bilateral breast nodules again seen. The patient has a history of bilateral breast cysts. There has been interval increase in size of several of the nodules. A bilateral breast ultrasound is recommended for further characterization. Microcalcifications: No suspicious pleomorphic-type are seen. Skin Thickening/Nipple Retraction: None. IMPRESSION: 1. Interval increase in size of several of the bilateral breast nodules. 2. Bilateral breast ultrasound is requested for further characterization. BI-RADS Category 0 - Incomplete: Need additional imaging evaluation Breast Density - Category B - There are scattered areas of fibroglandular density. Breast density Category C or D implies that the patient has dense breast tissue. Dense breast tissue can make it harder to find cancer on a mammogram. Dense breast tissue is also associated with an increased risk of breast cancer. This information about the result of the mammogram report was provided to the patient to raise their awareness. Use this report when you speak with the patient about their risks for breast cancer, which includes their family history. At that time, you may recommend additional screening tests (Ultrasound or MRI) as these tests may add significant information. A negative radiographic report should not delay biopsy if a dominant or clinically suspicious mass is present. Up to ten percent of cancers are not identified on mammography. A negative report may reinforce clinical impression. Adenosis and dense breasts may obscure an underlying neoplasm. False positive reports average 6 to 10%. Patient will receive a letter notifying them of these results.
== END ==
LOC: DI 00:09
PROVIDERS: PCP Family Medicine; Visit Provider Family Medicine
DX: Z12.31 Encounter for screening mammogram for malignant neoplasm of breast (principal)
CPT/HCPCS: 77063; 77067

== ENCOUNTER → 2025-06-01 00:19 | Outpatient (CLI) | payer MEDICARE, SELFPAY ==
--- NOTE | 2025-06-01 | DI.US_ITS ---
Exam(s) US BREAST LT COMPLETE US BREAST RT COMPLETE EXAM: US BREAST BILATERAL COMPLETE CLINICAL HISTORY: INCREASE IN SIZE OF BILAT BREAST NODULES,ABNL MAMMO, R92.8. TECHNIQUE: Complete ultrasound of both breasts was performed including all 4 quadrants, the retroareolar regions, and both axillary regions. COMPARISON: Prior mammograms were reviewed. Most recent mammogram was 05/27/2025. FINDINGS: LEFT BREAST ULTRASOUND: There are multiple cysts and microcysts. At the central 12 o'clock position are multiple cysts. The largest measures 2.6 x 1.3 cm and appears to contain some internal echoes, probably partially hemorrhagic cyst. There is slightly increased through transmission. This finding is wider than taller. At the 4 o'clock position there 2 findings. One is a 5 mm benign microcyst. The other is a round 3 x 3 mm finding with internal echoes. This is probably a hemorrhagic microcyst. The remainder of the findings in left breast are all purely cystic. RIGHT BREAST ULTRASOUND: There are multiple microcysts. At the 1 o'clock position there is a wider than taller snowman shaped well- defined nodule which measures 0.7 x 0.5 cm. It is probably hemorrhagic microcyst or small fibroadenoma. Adjacent to it is a simple benign microcyst measuring 9 mm. At 7 o'clock position there is an 8 x 6 mm finding which is probably a deep cyst with some internal echoes mildly hemorrhagic. The remainder of the findings in the right breast all appear purely cystic. In IMPRESSION: Multiple bilateral cysts and microcysts. A few of these contain internal echoes, these located at the 12 o'clock position and 4 o'clock position of the left breast as well as the 1 o'clock and 7 o'clock positions of the right breast. For this reason I recommend repeat bilateral complete breast ultrasound in 6 months, with earlier imaging if a self detected breast change is noted. Findings are recommendations were discussed by myself with the patient today BI-RADS Category 3 - 6 month - Probably Benign Finding: Recommend follow-up mammography in 6 months Breast Density - Category C - The breast are heterogeneously dense, which may obscure small masses. Breast density Category C or D implies that the patient has dense breast tissue. Dense breast tissue can make it harder to find cancer on a mammogram. Dense breast tissue is also associated with an increased risk of breast cancer. This information about the result of the mammogram report was provided to the patient to raise their awareness. Use this report when you speak with the patient about their risks for breast cancer, which includes their family history. At that time, you may recommend additional screening tests (Ultrasound or MRI) as these tests may add significant information. A negative radiographic report should not delay biopsy if a dominant or clinically suspicious mass is present. Up to ten percent of cancers are not identified on mammography. A negative report may reinforce clinical impression. Adenosis and dense breasts may obscure an underlying neoplasm. False positive reports average 6 to 10%. Patient will receive a letter notifying them of these results.
== END ==
LOC: DI 00:19
PROVIDERS: PCP Family Medicine; Visit Provider Family Medicine
DX: R92.8 Other abnormal and inconclusive findings on diagnostic imaging of breast (principal); Z12.31 Encounter for screening mammogram for malignant neoplasm of breast
CPT/HCPCS: 76642